=== PATIENT | male | born 1935 | race Hispanic/Latino ===

== ENCOUNTER 2019-01-10 07:28 | Outpatient (CLI) | payer MEDICARE, MEDICAID ==
--- NOTE | 2019-01-10 09:33 | CT ---
CT BRAIN PERFORMED WITHOUT CONTRAST ENHANCEMENT: History: Difficulty speaking. FINDINGS: There is generalized ventricular and sulcal prominence. There are no signs for intracerebral hemorrha ge or extraaxial fluid collections. There is chronic white matter change seen. Mastoid air cells and visualized sinuses are clear. IMPRESSION: No acute intracranial abnormalities. POS: [facility]
--- NOTE | 2019-01-10 10:43 | RAD ---
PA AND LATERAL CHEST: History: Dysphagia. FINDINGS: The heart size is within normal limits. There are atherosclerotic changes within a mildly tortuous ao rta. The lungs are clear of infiltrates. There is some linear scarring in the left lung base. Mild ar thritic changes of the spine. IMPRESSION: 1. Atherosclerosis. 2. No active intrathoracic disease. POS: [facility]
== END 2019-01-10 07:29 | disposition home or self-care (01) ==
LOC: BICCT 07:28
PROVIDERS: ATTEND Family Medicine
DX: I63.9 Cerebral infarction, unspecified (principal); R13.10 Dysphagia, unspecified; I70.90 Unspecified atherosclerosis
CPT/HCPCS: 70450; 71046; 82565

== ENCOUNTER 2019-01-26 09:21 | Outpatient (CLI) | payer MEDICARE, MEDICAID ==
--- NOTE | 2019-01-26 11:42 | RAD ---
BARIUM SWALLOW: HISTORY: Dysphagia. FINDINGS: Swallowing function appears to be within normal limits. There is minimal pooling of contrast into th e vallecula, which clears with swallowing. No evidence for stricture, ulcer, or mass. There is prominent gastroesophageal reflux demonstrated. IMPRESSION: Prominent gastroesophageal reflux demonstrated. No evidence for other significant acute process. POS: [facility]
== END 2019-01-26 09:22 | disposition home or self-care (01) ==
LOC: RAD 09:21
PROVIDERS: ATTEND Internal Medicine Gastroenterology
DX: R13.10 Dysphagia, unspecified (principal); K21.9 Gastro-esophageal reflux disease without esophagitis
CPT/HCPCS: 74220

== ENCOUNTER 2019-02-06 07:46 | Day surgery (SDC) | payer MEDICARE, MEDICAID ==
[2019-02-05 11:04] VITALS: BMI 27.4
--- NOTE | 2019-02-05 23:59 | HP ---
HISTORY OF PRESENT ILLNESS: This is an 83-year-old large Uzbek male comes for EGD for difficulty swallowing. The patient has had difficulty swallowing over the last five years. He does not speak Bulgarian and most of the history is obtained through circular saw edge fuser. Difficulty swallowing is mostly with solid food. the patient had EGD because of dysphagia. ALLERGIES: NONE. SOCIAL HISTORY: The patient does not smoke or drink alcohol. MEDICAL ILLNESSES: 1. Chronic kidney disease. 2. Hypertension. 3. COPD. 4. Kidney stones. 5. Enlarged prostate. 6. Gout. 7. Anemia. 8. Surgery for renal kidney stone in the past. PHYSICAL EXAMINATION: GENERAL: Fragile looking elderly male. VITAL SIGNS: His weight is 195 pounds, pulse is 75, blood pressure 120/76. HEENT: Conjunctivae clear. CARDIOVASCULAR: First and second heart sounds heard. LUNGS: Clear to auscultation. ABDOMEN: Soft. No organomegaly. No tenderness. No masses. EXTREMITIES: Reveal no edema. ADMITTING DIAGNOSIS: Dysphagia. PLAN: EGD and possible dilation. Job ID: [id number]
[2019-02-06] MEDS ORDERED: PROPOFOL 200 MG/20 ML VIAL ONE (11:22)
[2019-02-06] MEDS ORDERED: Lidocaine 1% PF 5 ML VIAL ONE (11:22)
--- NOTE | 2019-02-06 13:55 | OP ---
DATE OF PROCEDURE: 02/06/2019 PROCEDURES PERFORMED: 1. Esophagogastroduodenoscopy with biopsy. 2. Esophageal dilation with a balloon size 15 to 18 mm to stage I for 2 minutes. PREOPERATIVE DIAGNOSIS: Dysphagia. POSTOPERATIVE DIAGNOSES: 1. 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 2. Hiatal hernia. 3. Gastric ulcer. 4. Gastritis. DESCRIPTION OF PROCEDURE: The patient was placed on his left lateral position and was given sedation by Anesthesia Department. A Pentax video gastroscope under direct vision passed down the oropharynx, past the upper esophageal sphincter into the stomach. The upper two-thirds of the esophageal mucosa appears normal. Patient found to have esophagitis. The GE junction has a ring-like stricture. The ring is quite tight. The scope could not be advanced past the ring into his stomach. A Bard balloon size 15 to 18 mm placed at the GE junction over under endoscopic guidance. This was completed to stage I for 2 minutes. Following dilation, there was appropriate at GE junction indicating a successful dilation. No bleeding seen. The scope was advanced into the stomach without difficulty. He has small hiatal hernia. Retroflexion failed to show any pathology in the fundus and cardia. The gastric body, no pathology seen. The gastric antrum showed a small ulceration. The duodenal bulb, descending duodenum, no pathology seen. Biopsy of the gastric antrum and gastric body. The stomach was decompressed and the scope was removed. DISCHARGE PLANNING: This is an 83-year-old Latin-Zambian male came for EGD with dysphagia. EGD was performed. He got a very tight ring-like stricture at the GE junction. This was dilated with balloon size 15 to 18 mm. This was dilated to 15 mm. Following dilation, GE junction. There was mild mucosal oozing noted, but no active bleeding seen. The patient did well postprocedure and is being discharged. DISCHARGE INSTRUCTIONS: 1. The patient was advised on a clear liquid diet for the next 24 hours. 2. Director Private soft diet from tomorrow. 3. The patient was advised to call me, if he develops any chest pain, any fever, hematemesis, or melena. Job ID: [id number]
== END 2019-02-06 11:00 | disposition home or self-care (01) ==
LOC: SDC 07:46
PROVIDERS: ATTEND Internal Medicine Gastroenterology
PROC: 0D758ZZ Dilation of Esophagus, Via Natural or Artificial Opening Endoscopic (ICD-10-PCS; principal; 2019-02-06)
PROC: 0DB78ZX Excision of Stomach, Pylorus, Via Natural or Artificial Opening Endoscopic, Diagnostic (ICD-10-PCS; 2019-02-06)
DX: K22.2 Esophageal obstruction (principal); K29.50 Unspecified chronic gastritis without bleeding; K20.9 Esophagitis, unspecified; K44.9 Diaphragmatic hernia without obstruction or gangrene; K25.9 Gastric ulcer, unspecified as acute or chronic, without hemorrhage or perforation; M10.9 Gout, unspecified; N40.0 Benign prostatic hyperplasia without lower urinary tract symptoms; J44.9 Chronic obstructive pulmonary disease, unspecified; I12.9 Hypertensive chronic kidney disease with stage 1 through stage 4 chronic kidney disease, or unspecified chronic kidney disease; N18.9 Chronic kidney disease, unspecified; D63.1 Anemia in chronic kidney disease; Z79.899 Other long term (current) drug therapy; Z88.2 Allergy status to sulfonamides
CPT/HCPCS: 88305; 88312; 88313; J2001; J2704

== ENCOUNTER 2020-12-03 16:07 | Inpatient (IN) | payer MEDICARE, MEDICAID ==
[2020-12-03 16:39] LABS: #Eosinphils 0.1 thou/uL (0.0-0.7); #Lymphocytes 1.4 thou/uL (1.20-3.40); #Monocytes 0.8 thou/uL (0.11-0.59); #Neutrophils 13.4 thou/uL (1.40-6.50); %Basophils 0.3 % (0.0-1.0); %Eosinophils 0.4 % (0.0-10.0); %Lymphocytes 8.8 % (21.0-51.0); %Monocytes 5.2 % (0.0-10.0); %Neutrophils 85.4 % (42.0-75.0); Hemoglobin 10.8 g/dL (14.0-18.0); Mean Corpuscular HGB CONC 35.1 g/dL (32.0-36.0); Mean Corpuscular Hemoglobin 33.7 pg (27.0-31.0); Mean Corpuscular Volume 96.1 fL (78.0-98.0); Platelet Count 238 thou/uL (130-400); RBC Distribution Width 14.2 % (11.5-14.5); White Blood Cell (WBC) Count 15.6 thou/uL (4.8-10.8)
--- NOTE | 2020-12-03 16:43 | RAD ---
Exam: Chest one view HISTORY:Chest pain. Patient ran out of reflux medication. Vomiting sensation. Comparison: 08/22/2013, 01/10/2019 FINDINGS: Cardiac silhouette: Normal Aorta: At the sclerosis Pulmonary vessels: Normal Costophrenic angles: Clear LUNGS: No masses or consolidation. Pneumothorax: None Osseous abnormalities: None IMPRESSION: No acute cardiopulmonary process. Atherosclerosis.
[2020-12-03 16:59] LABS: ALT (SGPT) 11 U/L (8-55); AST (SGOT) 16 U/L (5-34); Albumin 4.2 g/dL (3.4-4.8); Alkaline Phosphatase 84 U/L (40-110); Anion Gap 14 mmol/L (10-20); BUN (Urea Nitrogen) 33 mg/dL (8.4-25.7); Calc. Creatinine Clearance 0 mL/min (70-130); Calcium 9.2 mg/dL (7.8-10.44); Carbon Dioxide 22 mmol/L (23-31); Chloride 109 mmol/L (98-107); Globulin 3.6 g/dL (2.4-3.5); Glucose 136 mg/dL (83-110); Lipase 29 U/L (8-78); Potassium 3.2 mmol/L (3.5-5.1); Protein, Total 7.8 g/dL (5.8-8.1); Sodium 142 mmol/L (136-145)
[2020-12-03] MEDS ORDERED: Nitroglycerin 2% Ointment 1 INCH/1 GM Packet ONE (17:25)
[2020-12-03] MEDS ORDERED: Labetalol HCl 100 MG/20 ML VIAL ONE (17:26)
[2020-12-03] MEDS ORDERED: Potassium Chloride 20 MEQ TAB ONE (17:26)
[2020-12-03] MEDS ORDERED: Potassium Chloride 20 MEQ/100 ML PREMIX BAG ONE (17:30)
--- NOTE | 2020-12-03 18:08 | RAD ---
BARIUM SWALLOW: 12/03/20 HISTORY: Difficulty drinking and eating. Belching and vomiting sensation. The patient ingested the barium without difficulty. The esophageal mucosa was normal. Questionable sl ight narrowing to the distal esophagus; however, a barium tablet passed through this area without dif ficulty. There were some tertiary contractions demonstrated. N episode of reflux was noted. IMPRESSION: No evidence of any significant stricture. Suggestion of some mild narrowing to the distal esophagus; however, a barium tablet passed without difficulty. No obstructing mass. Overall appearance is simil ar to the previous barium swallow exam of 01/26/19. POS: OFF
[2020-12-03] MEDS ORDERED: Potassium Bicarbonate/Cit Ac 20 MEQ TAB PO SCH (18:30)
--- NOTE | 2020-12-03 18:35 | PDOC.HHP ---
Hospitalist HPI - History of Present Illness chest pain and dysphagia History of Present Illness: PCP: Dr. Guerrero The patient is an 85-year-old male with a past medical history significant for esophageal stricture (previous ballooning), GERD, cirrhosis, alcohol abuse, HTN, CKD 4 and anemia of chronic disease that presents to the emergency department for the above complaint. The patient reports having difficulty swallowing over the past 4 days. He reports that he has not taken most of his medications for the past 2 days. He is able to control his saliva. Denies SOB, cough, and hemoptysis/hematemesis. He endorses chest pain, located centrally, described as "pain", persistent, worse with sensation of belching, and relieved by nothing. He has a history of acid reflux and has not been able to take 1 of 2 medications for the past 2 weeks because he ran out of his prescription. He denies heart palpitations, lightheadedness or swelling to his lower extremities. No history of DVT/PE. No history of COPD/asthma. The patient tested negative for Covid-19 virus today at [facility]. He attempted to see his primary care doctor, who suggested he go to the emergency department for further evaluation of his symptoms. ED Course: VITAL SIGNS TueDec 03, 2020 16:08 HUGO Colmenares Ashleigh Pain: UTR, Time: 12/03/2020 16:08. VITAL SIGNS TueDec 03, 2020 16:11 HUGO Colmenares Ashleigh BP: 166/74, Pulse: 77, Resp: 20, Temp: 98.2 (Oral), Pain: UTR, O2 sat: 99 on (Ro om Air), Time: 12/03/2020 16:11. VITAL SIGNS TueDec 03, 2020 16:27 HUGO Church, Marquis BP: 196/78, Pulse: 90, Resp: 17, Pain: 7, O2 sat: 100 on (Room Air), Time: 12/03/2020 16:27. VITAL SIGNS TueDec 03, 2020 17:35 HUGO Douglass Miranda BP: 170/62, Pulse: 66, Resp: 17, O2 sat: 100 on (Room Air), Time: 12/03/2020 17:35. Medications: potassium bicarb-citric acid 40 mEq Oral Acknowledged 18:19 12/03/2020 labetalol intravenous 20 mg IV Push Given 18:08 12/03/2020 Nitro-Bid transdermal 1 inch Topical Given 17:30 12/03/2020 Hospitalist ROS - Review of Systems All other systems reviewed; all pertinent +/- noted in HPI/Subj - Medication Medications: 1. Folic acid 1 mg p.o. daily 2. B12 1000 mcg p.o. daily 3. Allopurinol 100 mg p.o. daily 4. Dutasteride 0.5 mg p.o. daily 5. Tamsulosin 0.4 mg p.o. daily 6. Amlodipine 5 mg p.o. daily 7. Carvedilol 6.25 mg p.o. twice daily 8. Hydralazine 10 mg p.o. twice daily 9. Spironolactone 25 mg p.o. twice daily 10. Allopurinol 100 mg p.o. daily Allergies: Sulfa Hospitalist History - Past Medical History Source: patient, family, RN notes reviewed Cardiac: reports: HTN Gastrointestinal: reports: GERD, Other (Esophageal stricture) Heme/Onc: reports: B12 deficiency Hepatobiliary: reports: Cirrhosis Rheumatologic: reports: Gout Renal/: reports: Chronic renal insuff (CKD4), Benign prostatic enlarg. Endocrine: reports: Diabetes (Borderline) - Past Surgical History Past Surgical History: reports: Other (Esophageal stricture with balloon) - Family History Family History: denies: cardiac disorder, cerebrovascular accident - Social History Smoking Status: Never smoker Alcohol: reports: Heavy (Former heavy unhealthy alcohol use, 30 pack every other day, quit 5 to 6 years ago) Drugs: reports: none Living Situation: Alone Occupation: Retired Activity level: uses cane/walker - Exam General Appearance: NAD, awake alert. negative: ill appearing Eye: anicteric sclera ENT: normocephalic atraumatic Neck: supple, no lymphadenopathy, no carotid bruit Heart: RRR, no murmur, no gallops, no rubs, normal peripheral pulses Respiratory: CTAB, no wheezes, no rales, no ronchi, normal chest expansion, no tachypnea Gastrointestinal: soft, non-tender, normal bowel sounds, no guarding, no rigidity, distended Extremities: no cyanosis, no edema Skin: no rashes Neurological: cranial nerve grossly intact, no focal deficits Psychiatric: normal affect, A&O x 3 (Khmer speaking) Hospitalist Results - Labs Result Diagrams: 12/03/20 16:24 12/03/20 16:24 Lab results: WBC 15.6 thou/uL (4.8-10.8) H 12/03/20 16:24 Hgb 10.8 g/dL (14.0-18.0) L 12/03/20 16:24 Hct 30.7 % (42.0-52.0) L 12/03/20 16:24 MCV 96.1 fL (78.0-98.0) 12/03/20 16:24 Plt Count 238 thou/uL (130-400) 12/03/20 16:24 Neutrophils % 85.4 % (42.0-75.0) H 12/03/20 16:24 Sodium 142 mmol/L (136-145) 12/03/20 16:24 Potassium 3.2 mmol/L (3.5-5.1) L 12/03/20 16:24 Chloride 109 mmol/L (98-107) H 12/03/20 16:24 Carbon Dioxide 22 mmol/L (23-31) L 12/03/20 16:24 BUN 33 mg/dL (8.4-25.7) H 12/03/20 16:24 Creatinine 3.67 mg/dL (0.7-1.3) H 12/03/20 16:24 Glucose 136 mg/dL (83-110) H 12/03/20 16:24 Calcium 9.2 mg/dL (7.8-10.44) 12/03/20 16:24 Total Bilirubin 2.0 mg/dL (0.2-1.2) H 12/03/20 16:24 AST 16 U/L (5-34) 12/03/20 16:24 ALT 11 U/L (8-55) 12/03/20 16:24 Alkaline Phosphatase 84 U/L (40-110) 12/03/20 16:24 Troponin I 0.025 ng/mL (< 0.028) 12/03/20 16:24 Serum Total Protein 7.8 g/dL (5.8-8.1) 12/03/20 16:24 Albumin 4.2 g/dL (3.4-4.8) 01/20/21 16:24 Lipase 29 U/L (8-78) 12/03/20 16:24 - EKG Interpretation EK lead EKG interpreted by Emergency Department Physician at time of study, Sinus rhythm with a first-degree AV block. Rate of 73. Normal axis normal inter vals except a first-degree AV block. Normal ST segments normal T waves. There is a tremor artifact. - Radiology Interpretation Chest x-ray Status: report reviewed by me Additional Comment: IMPRESSION: No acute cardiopulmonary process. Atherosclerosis. Other Status: report reviewed by me Additional Comment: Barium swallow: No evidence of any significant stricture. Suggestion of some mild narrowing to the distal esophagus; however, a barium tablet passed without difficulty. No obstructing mass. Overall appearance is similar to the previous barium swal low exam of 01-26-19. Hospitalist H&P A/P - Problem (1) Chest pain Code(s): R07.9 - CHEST PAIN, UNSPECIFIED Status: Acute (2) Hypertensive urgency Code(s): I16.0 - HYPERTENSIVE URGENCY Status: Acute (3) Dysphagia Code(s): R13.10 - DYSPHAGIA, UNSPECIFIED Status: Acute (4) Leukocytosis Code(s): D72.829 - ELEVATED WHITE BLOOD CELL COUNT, UNSPECIFIED Status: Acute (5) Hypokalemia Code(s): E87.6 - HYPOKALEMIA Status: Acute (6) Elevated glucose level Code(s): R73.09 - OTHER ABNORMAL GLUCOSE Status: Acute (7) Kidney disease, chronic, stage IV (GFR 15-29 ml/min) Code(s): N18.4 - CHRONIC KIDNEY DISEASE, STAGE 4 (SEVERE) Status: Chronic (8) Anemia, chronic disease Code(s): D63.8 - ANEMIA IN OTHER CHRONIC DISEASES CLASSIFIED ELSEWHERE Status: Chronic (9) GERD (gastroesophageal reflux disease) Code(s): K21.9 - GASTRO-ESOPHAGEAL REFLUX DISEASE WITHOUT ESOPHAGITIS Status: Chronic (10) Gout Code(s): M10.9 - GOUT, UNSPECIFIED Status: Chronic (11) Cirrhosis of liver Code(s): K74.60 - UNSPECIFIED CIRRHOSIS OF LIVER Status: Chronic - Plan Plan: A patient with history of esophageal stricture, GERD and HTN presents for chest pain and dysphagia. Admit to telemetry floor, inpatient status. #Chest pain ACS versus GERD Symptoms present with belching, has not taken 1 of 2 GERD medications for 14 days. Heart score 5 Give GI cocktail x1. Trend troponins, check TSH, FLP, mag and BNP. Give aspirin and statin and beta-kyung. Continue Nitropaste. Consult cardiology N.p.o. #Hypertensive urgency BP 196/78 Has not taken Norvasc, Coreg, hydralazine for 2 days. Given labetalol in ER. We will restart home medications. Continue to monitor BP. #Dysphagia History esophageal stricture status post ballooning. Barium swallow no evidence of significant stricture. Patient hesitant with oral intake. Consult TELE RN. #Leukocytosis Presented WBCs 15.6, no bandemia Denies fever/chills. No sick contacts. Rapid Covid (neg) 12/03 at [facility] prior to admission here. CXR no acute process Check UA No antibiotics at this time. #Hypokalemia Presented K3.2 Received 40 mEq in the ER. Check mag level. Recheck level in a.m. #Elevated blood glucose level Presented BG 136 Prediabetic?- per patient family member Check hemoglobin A1c. #Chronic kidney disease stage IV Presented BUN 33, creatinine 3.67, GFR 16 No baseline for comparison. We will recheck level in the a.m. #Anemia of chronic disease Presented hemoglobin 10.8, hematocrit 30.7 Appears stable. #GERD Takes 2 unknown medications for GERD at home. Has not taken one of them for 14 days because he ran out. Start Protonix. #Gout Takes allopurinol at home. Restart home medications and reconciled by nursing. #Cirrhosis of the liver Chronic, appears stable. T bili 2.0, AST/ALT/ALP unremarkable. History of unhealthy alcohol use disorder Drink 30 pack every other day. Quit 5 to 6 years ago. SCDs for DVT prophylaxis. Protonix for GI prophylaxis. CODE STATUS is full code. Discussed the case with attending physician, Dr. Coker who agrees with plan of care.
[2020-12-03] MEDS ORDERED: Nitroglycerin 0.4 MG TAB (25 Tab Bottle) SL PRN (19:14)
[2020-12-03] MEDS ORDERED: Calcium Carbonate 500 MG ChewTAB PO PRN (19:23)
[2020-12-03] MEDS ORDERED: Ondansetron ODT 4 MG TAB PO PRN (19:23)
[2020-12-03] MEDS ORDERED: Acetaminophen 325 MG TAB PO PRN (19:23)
[2020-12-03] MEDS ORDERED: Senokot S 8.6-50 MG TAB PO PRN (19:23)
[2020-12-03] MEDS ORDERED: Bisacodyl 5 MG TAB PO PRN (19:23)
[2020-12-03] MEDS ORDERED: Lidocaine 2% Viscous Solution 10 ML, Aluminum & Magnesium Hydroxide 30 ML SSW SCH (19:30)
[2020-12-03] MEDS ORDERED: Aspirin 325 MG TAB PO SCH (19:30)
[2020-12-03 19:43] LABS: Troponin I 0.018 ng/mL (< 0.028)
--- NOTE | 2020-12-03 21:43 | ULT ---
RENAL ULTRASOUND: 12/03/20 HISTORY: Acute renal insufficiency. Real time imaging of the right and left kidneys were performed. The right kidney measures 10.7 cm in size and the left kidney measures 11.8 cm. Multiple cysts are seen on the right. The largest in the 3 cm range. Cortical thinning of both kidneys. The changes are more pronounced on the right. There aldair ears to be a posterior bladder diverticulum present. The prostate is prominent. IMPRESSION: 1. No obstruction of either kidney. Several right sided renal cysts, largest in the upper pole r egion measuring in the 3 cm range. Cortical thinning of both kidneys. 2. 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 POS: OFF
[2020-12-03] MEDS: Atorvastatin Calcium 40 MG TAB PO SCH (22:07)
[2020-12-03] MEDS: Nitroglycerin 2% Ointment 1 INCH/1 GM Packet TOP SCH (22:08)
[2020-12-03 22:22] VITALS: BMI 25.0
[2020-12-03 23:15] LABS: Troponin I 0.021 ng/mL (< 0.028)
[2020-12-04 04:07] LABS: #Basophils 0.1 thou/uL (0.0-0.2); #Eosinphils 0.2 thou/uL (0.0-0.7); #Lymphocytes 1.8 thou/uL (1.20-3.40); #Monocytes 1.1 thou/uL (0.11-0.59); #Neutrophils 8.1 thou/uL (1.40-6.50); %Basophils 0.5 % (0.0-1.0); %Eosinophils 1.7 % (0.0-10.0); %Lymphocytes 16.2 % (21.0-51.0); %Monocytes 9.9 % (0.0-10.0); %Neutrophils 71.7 % (42.0-75.0); Hemoglobin 8.8 g/dL (14.0-18.0); Mean Corpuscular HGB CONC 35.8 g/dL (32.0-36.0); Mean Corpuscular Hemoglobin 33.9 pg (27.0-31.0); Mean Corpuscular Volume 94.8 fL (78.0-98.0); Mean Platelet Volume 8.1 fL (7.4-10.4); Platelet Count 207 thou/uL (130-400); RBC Distribution Width 14.4 % (11.5-14.5); White Blood Cell (WBC) Count 11.3 thou/uL (4.8-10.8)
[2020-12-04 04:14] LABS: Hemoglobin A1c 4.6 % (4.0-6.0)
[2020-12-04 04:32] LABS: Cardiac Risk 4.4 (Less than 4.5)
[2020-12-04] MEDS: Nitroglycerin 2% Ointment 1 INCH/1 GM Packet TOP SCH ×3 (05:38→20:49)
[2020-12-04] MEDS ORDERED: Carvedilol 6.25 MG TAB PO SCH (08:00)
[2020-12-04] MEDS: Aspirin Chewable 81 MG TAB PO SCH (09:04)
[2020-12-04 10:45] LABS: Bacteria/HPF None Seen HPF (None Seen); Bilirubin Negative (Negative); Blood, Urine Negative (Negative); Clarity Clear (Clear); Glucose, Urine (Dipstick) Normal (Negative); Ketone, Urine Negative (Negative); Leukocyte Negative Leu/uL (Negative); Nitrite Negative (Negative); Protein, Urine (Dipstick) 30 mg/dL (Neg-Trace); RBC/HPF 0-3 HPF (0-3); Specific Gravity, Urine 1.012 (1.002-1.036); Squamous Epithelial 0-3 HPF (0-3); Urobilinogen Normal mg/dL (Less than 2); WBC/HPF 0-3 HPF (0-3)
--- NOTE | 2020-12-04 16:43 | CON ---
DATE OF CONSULTATION: 12/04/2020 REASON FOR CONSULTATION: Chest pain. HISTORY OF PRESENT ILLNESS: Mr. Liana Montaño is a very pleasant 85-year-old gentleman, Estonian-speaking only, who comes to the hospital for dysphagia and chest pain. He states that he has pain when he swallows, otherwise if he does not swallow much, he does not have pain. He has a history of an esophageal stricture. He last had a dilatation from reviewing the records in [address] Paige here in the hospital. He denies any chest tightness or pressure or any symptoms with exertion, he states it is only with swallowing. Cardiology is being consulted as there is a concern this chest pain may be cardiac related. PAST MEDICAL HISTORY: 1. Esophageal stricture with previous dilatation. 2. GERD. 3. Cirrhosis. 4. Alcohol abuse. 5. Hypertension. 6. Chronic kidney disease stage 4. 7. Anemia of chronic disease. OUTPATIENT MEDICATIONS: 1. Folic acid 1 mg a day. 2. Vitamin B12. 3. Allopurinol. 4. Dutasteride. 5. Tamsulosin. 6. Amlodipine 5 mg a day. 7. Carvedilol 6.25 b.i.d. 8. Hydralazine 10 mg b.i.d. 9. Spironolactone 25 mg twice a day. ALLERGIES: SULFA DRUGS. PAST SURGICAL HISTORY: EGD with esophageal dilatation. FAMILY HISTORY: Noncontributory. SOCIAL HISTORY: No tobacco or drugs. Heavy alcohol use, quit about 5 to 6 years ago. REVIEW OF SYSTEMS: A 12-point review of systems was done and was found to be negative other than stated in the history of present illness. PHYSICAL EXAMINATION: VITAL SIGNS: Temperature 97.9, pulse 60, respiratory rate 18, saturating 97% on room air, and blood pressure 167/74. GENERAL: Awake, alert, oriented x3. In no distress. Very difficult historian. Easier for me as he speaks Estonian. HEENT: Normocephalic, atraumatic. NECK: Supple. LUNGS: Clear. CARDIOVASCULAR: S1 and S2. No S3 or S4. There is a grade 2/6 systolic murmur at the right upper sternal border. ABDOMEN: Soft. Positive bowel sounds. EXTREMITIES: No edema. SKIN: Warm and dry. LABORATORY DATA: Laboratory work was reviewed. CBC with a white count of 15, hemoglobin of 10, hematocrit of 30, and platelet count of 238, that is from yesterday afternoon. This morning, white count is down to 11, hemoglobin is down to 8.8 from 10.8 with a platelet count of 207. Chemistries showed a potassium of 3.2, BUN of 33, creatinine of 3.67. This is way higher than his baseline which is about 1.5 to 2.5. Troponin is completely negative x2. BNP was 183. Lipase was normal. TSH was normal. UA was unremarkable. EKG was reviewed. ASSESSMENT AND PLAN: 1. Chest pain. Likely gastrointestinal in nature. 2. Esophageal stricture. 3. Dysphagia. 4. Cirrhosis. 5. Acute kidney injury on chronic kidney disease stage 4 now. 6. Hypertension. PLAN: 1. We will get an echocardiogram to assess LV function and valvular structures. 2. I doubt that his pain is related to a cardiac issue as it is mostly when he swallows, most likely will need a GI evaluation. 3. We will restart his home medications. He has not been taking any of his medications as he has had the hard time swallowing. More than likely, he will get better blood pressure control once he is able to take his home medications. 4. Further recommendations per results of echocardiogram. Thank you for letting us to participate in the care of the patient. Job ID: [id number]
[2020-12-04] MEDS: Atorvastatin Calcium 40 MG TAB PO SCH (20:48)
[2020-12-04] MEDS ORDERED: Electrolyte Replacement Protocol 1 EACH FS SCH (23:00)
[2020-12-04] MEDS ORDERED: hydrALAZINE 20 MG/ML VIAL SLOW IVP PRN (23:00)
--- NOTE | 2020-12-04 23:02 | PDOC.HOSPP ---
- Subjective Encounter Date: 12/04/20 Encounter Time: 12:30 Subjective: Patient seen and examined for CP. Chest pain resolved. Denies any nausea or vomiting. No new complaints. No overnight events - Objective Vital Signs & Weight: Vital Signs (12 hours) Temp Pulse Resp BP Pulse Ox 12/04/20 18:55 97.6 F 60 16 174/77 H 98 12/04/20 15:16 97.9 F 60 18 167/74 H 97 12/04/20 12:46 98.8 F 60 14 155/71 H 97 Weight Weight 169 lb 6.4 oz I&O: 12/03/20 12/04/20 12/05/20 06:59 06:59 06:59 Intake Total 240 360 Output Total 300 Balance 240 60 Result Diagrams: 12/05/20 04:11 12/05/20 04:11 Additional Labs: Abnormal Lab Results - Last 48 hrs 12/03/20 16:24: Potassium 3.2 L, Chloride 109 H, Carbon Dioxide 22 L, BUN 33 H, Creatinine 3.67 H, Total Bilirubin 2.0 H, Globulin 3.6 H 12/03/20 16:24: WBC 15.6 H, RBC 3.20 L, Hgb 10.8 L, Hct 30.7 L, MCH 33.7 H, Neutrophils % 85.4 H, Lymphocytes % 8.8 L, Neutrophils # 13.4 H, Monocytes # 0.8 H 12/03/20 19:52: B-Natriuretic Peptide 183.4 H 12/04/20 03:22: WBC 11.3 H, RBC 2.60 L, Hgb 8.8 L, Hct 24.6 L, MCH 33.9 H, Lymph ocytes % 16.2 L, Neutrophils # 8.1 H, Monocytes # 1.1 H 12/04/20 10:09: Urine Protein 30 A Radiology Reviewed by me: Yes (Chest x-rayno infiltrate) EKG Reviewed by me: Yes (Tele - SR/?AV block) Hospitalist ROS - Review of Systems Gastrointestinal: denies: nausea, vomiting, abdominal pain, diarrhea, constipation, melena, hematochezia, other Genitourinary: denies: dysuria, frequency, incontinence, hematuria, retention, other - Medication Medications: Active Medications Generic Name Dose Route Start Last Admin Trade Name Freq PRN Reason Stop Dose Admin Aspirin 81 mg 12/04/20 09:00 12/04/20 09:04 Aspirin Chewable 81 Mg Tab PO 81 mg DAILY JOSEPH Administration Atorvastatin Calcium 40 mg 12/03/20 21:00 12/04/20 20:48 Atorvastatin Calcium 40 Mg Tab PO 40 mg HS JOSEPH Administration Nitroglycerin 0.5 inch 12/03/20 22:00 12/04/20 20:49 Nitroglycerin 2% Ointment 1 Inch/1 Gm Packet TOP Not Given Q8HR JOSEPH Pantoprazole Sodium 40 mg 12/04/20 09:00 12/04/20 09:04 Pantoprazole 40 Mg Tab PO 40 mg DAILY JOSEPH Administration - Exam General Appearance: NAD, awake alert Heart: RRR, no gallops, no rubs, normal peripheral pulses Respiratory: no wheezes, no rales, no ronchi, normal chest expansion Gastrointestinal: soft, non-tender, non-distended, normal bowel sounds Extremities: no cyanosis, no clubbing, no edema Neurological: no new deficit Musculoskeletal: generalized weakness Psychiatric: normal affect, A&O x 3 Hosp A/P - Plan DVT proph w/SCDs Patient is 85-year-old male with GERD, hypertension, CKD and esophageal stricture presented to the emergency room with chest discomfort along with swallowing difficulty on 12/03. Impression: Chest pain/dysphagia suspected due to esophageal in origin History of esophageal stricture Acute kidney injury on CKD stage IIIprobably hemodynamically mediated Hypokalemia Chronic cirrhosis with abnormal LFTs Anemia of chronic disease ? Speech difficulty x 1 month Plan: We will continue nitroglycerin patch. GI and cardiology input appreciated. Replace potassium. Recheck labs in a.m. Continue other medications as above. Patient will probably need EGD and dilatation. As needed antihypertensives. Recheck labs in a.m.
[2020-12-05 04:57] LABS: #Basophils 0.1 thou/uL (0.0-0.2); #Eosinphils 0.2 thou/uL (0.0-0.7); #Lymphocytes 1.7 thou/uL (1.20-3.40); #Monocytes 0.9 thou/uL (0.11-0.59); #Neutrophils 9.5 thou/uL (1.40-6.50); %Basophils 0.6 % (0.0-1.0); %Eosinophils 1.5 % (0.0-10.0); %Lymphocytes 13.8 % (21.0-51.0); %Monocytes 7.6 % (0.0-10.0); %Neutrophils 76.6 % (42.0-75.0); Hemoglobin 9.4 g/dL (14.0-18.0); Mean Corpuscular HGB CONC 34.2 g/dL (32.0-36.0); Mean Corpuscular Hemoglobin 32.7 pg (27.0-31.0); Mean Corpuscular Volume 95.5 fL (78.0-98.0); Mean Platelet Volume 8.4 fL (7.4-10.4); Platelet Count 214 thou/uL (130-400); RBC Distribution Width 14.3 % (11.5-14.5); Red Blood Cell (RBC) Count 2.89 mill/uL (4.70-6.10); White Blood Cell (WBC) Count 12.4 thou/uL (4.8-10.8)
[2020-12-05 05:18] LABS: Phosphorus 2.4 mg/dL (2.3-4.7)
[2020-12-05 05:24] LABS: ALT (SGPT) 7 U/L (8-55); AST (SGOT) 13 U/L (5-34); Albumin 3.3 g/dL (3.4-4.8); Alkaline Phosphatase 70 U/L (40-110); Anion Gap 15 mmol/L (10-20); BUN (Urea Nitrogen) 33 mg/dL (8.4-25.7); Bilirubin, Total 2.1 mg/dL (0.2-1.2); Calc. Creatinine Clearance 19 mL/min (70-130); Calcium 8.2 mg/dL (7.8-10.44); Carbon Dioxide 18 mmol/L (23-31); Chloride 106 mmol/L (98-107); Globulin 2.8 g/dL (2.4-3.5); Glucose 81 mg/dL (83-110); Magnesium 2.2 mg/dL (1.6-2.6); Potassium 3.3 mmol/L (3.5-5.1); Protein, Total 6.1 g/dL (5.8-8.1); Sodium 136 mmol/L (136-145)
[2020-12-05] MEDS: Nitroglycerin 2% Ointment 1 INCH/1 GM Packet TOP SCH ×3 (05:39→20:52)
[2020-12-05] MEDS ORDERED: Potassium Chloride 20 MEQ TAB PO SCH (06:30)
--- NOTE | 2020-12-05 06:47 | CON ---
DATE OF CONSULTATION: REASON FOR CONSULTATION: Dysphagia, painful swallowing. HISTORY OF PRESENT ILLNESS: Mr. Edward Montaño is an 85-year-old Latin-Niue[place] male, hospitalized for difficulty swallowing and chest pain. He has been seen by Dr. López Ni for cardiology input. Dr. Ni does not think the pain is from the heart and the pain appears to be more pain with swallowing. He also has history of dysphagia. The patient was in the room along with an diplomatic interpreter. The patient does not speak [place]ese. Also, the patient has been having some difficulty swallowing off and on over the last several weeks and got suddenly worse. Apparently on the day of admission, he had some frothing at the mouth and spitting saliva. Since then, his symptoms markedly improved. The patient has history of chronic acid reflux and also he has past history of gastric ulcer. The patient had seen me in January of 2019 with dysphagia. He underwent an EGD in this hospital. He was found to have a very tight esophageal stricture, which was dilated with a balloon. He also had a gastric ulcer. The patient was placed on PPI. He came back to see me in the office subsequently and was doing well. He has done well since dilatation until a few years ago. He has recurrent dysphagia again. However, he also has some difficulty with mostly to solid food. Food hangs up there and makes him cough and choke. He has no difficulty drinking water. He also complains of painful swallowing recently. Denies any chest tightness, dyspnea, or chest heaviness. The patient apparently takes some PPI, which ran out a few days ago. The patient had a barium swallow done yesterday, which revealed a distal esophageal stricture. A 12 mm barium tablet did pass down, but distal esophageal stricture barium swallow. No esophageal mass seen. No relevant history. The patient denies abdominal pain. No hematochezia. No melena. ALLERGIES: SULFA. SOCIAL HISTORY: He lives with his niece and nephew. He is a past smoker and has a past history of chronic alcohol abuse until five years ago. No recent drug abuse. MEDICAL ILLNESSES: 1. 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 2. Chronic acid reflux. 3. Hypertension. 4. Chronic kidney disease stage 4. 5. Anemia of chronic disease. 6. Esophageal stricture, status post dilation in 2019. 7. Gastric ulcer. MEDICATIONS: 1. Folic acid. 2. Vitamin B12. 3. Allopurinol. 4. Tamsulosin. 5. Amlodipine. 6. Carvedilol. 7. Hydralazine. 8. Spironolactone. FAMILY HISTORY: Unremarkable. REVIEW OF SYSTEMS: A 10-point system review; basically painful swallowing, dysphagia. No abdominal pain. No hematochezia. No melena. No weight loss. PHYSICAL EXAMINATION: GENERAL: He appears very comfortable. He is awake, alert, and communicative. He is in no distress. VITAL SIGNS: Afebrile. Pulse is 60, blood pressure is 160/74. HEENT: Conjunctivae clear. NECK: Supple. No adenitis or thyromegaly noted. CARDIOVASCULAR SYSTEM: Normal heart sounds. He has a faint systolic murmur. LUNGS: Clear to auscultation. ABDOMEN: Soft. Nontender. No organomegaly. No masses. Bowel sounds normal. EXTREMITIES: Reveal no edema. LABORATORY DATA: Shows WBC 15,000, hemoglobin 10, hematocrit 30, platelet count 238,000. Potassium 3.2, BUN is 33, creatinine is 3.67. Troponin is normal. BNP 183. Lipase is normal. CLINICAL IMPRESSION: An 85-year-old Latin-Niuean male, who is known to me from before. He has seen me in 2019 and underwent EGD and dilation. The EGD showed a very tight distal esophageal stricture and he underwent balloon dilation. He had done well after dilation. Because of the recurrent dysphagia following. 1. cardiac disease. 2. Hypertension. 3. Liver cirrhosis. 4. Chronic acid reflux. 5. Chronic kidney disease. 6. Anemia of chronic disease. PLAN: EGD and dilation tomorrow. I did talk to the patient through the diplomatic interpreter, and explained the procedure in detail. I will make further recommendation after EGD. Job ID: [id number]
--- NOTE | 2020-12-05 08:15 | CT ---
Head CT without contrast 12/05/2020: COMPARISON: 01/10/2019 HISTORY: Speech disturbance, assess for stroke TECHNIQUE: Axial CT imaging at 5 mm intervals from vertex through skull base without contrast FINDINGS: The imaged paranasal sinuses and mastoid air cells appear well-aerated. There is no displac ed calvarial fracture noted. There is atherosclerotic calcification at the level of the cavernous carotid arteries. No intracranial hemorrhage, midline shift, or mass effect. Stable cerebral volume loss with associate d prominence of the CSF containing spaces. IMPRESSION: Cerebral volume loss, unchanged. No intracranial hemorrhage. There is clinical concern fo r acute infarction, brain MRI is advised if the patient is able.
[2020-12-05] MEDS: Aspirin Chewable 81 MG TAB PO SCH (08:48)
[2020-12-05] MEDS ORDERED: PROPOFOL 200 MG/20 ML VIAL ONE (09:52)
[2020-12-05] MEDS ORDERED: Sodium Chloride 0.9% 500 ML IV SCH (10:30)
--- NOTE | 2020-12-05 12:28 | EKG ---
Test Reason : STAT Blood Pressure : / mmHG Vent. Rate : 060 BPM Atrial Rate : 060 BPM P-R Int : 300 ms QRS Dur : 068 ms QT Int : 442 ms P-R-T Axes : 005 037 035 degrees QTc Int : 442 ms Sinus rhythm with 1st degree A-V block Otherwise normal ECG Confirmed by ERROL LAWSON ([id number]) on 12/05/2020 12:28:03 PM Referred By: JOAN LUQUE Confirmed By:ERROL LAWSON
--- NOTE | 2020-12-05 13:27 | OP ---
DATE OF PROCEDURE: 12/05/2020 OPERATIVE PROCEDURE: 1. Esophagogastroduodenoscopy with biopsy. 2. Esophageal dilation with a balloon size 15 to 18 mm to stage I, corresponding to 15 mm. 3. The patient has a 16 mm balloon dilation with no resistance. PREOPERATIVE DIAGNOSES: Dysphagia, chest pain. POSTOPERATIVE DIAGNOSES: 1. Esophageal ulcer at the junction of mid esophagus to lower esophagus. 2. Distal esophageal ring-like stricture. 3. Hiatus hernia. 4. Polyp of the gastric body and another one in the gastric antrum. 5. Diffuse gastritis. DESCRIPTION OF PROCEDURE: The patient was placed on his left lateral position and was given sedation by Anesthesia Department. A bite block was placed. A Pentax video gastroscope under direct vision passed down the oropharynx past the GE junction. The patient had esophageal ulceration at the junction of mid esophagus . The ulcer was circumferential. At the GE junction, he had a ring-like esophageal stricture. The scope was advanced into the stomach with resistance. There was mild mucosal tear and mild bleeding noted. He had a hiatus hernia. Retroflexion failed to show any pathology in fundus or cardia. Over the gastric body, the patient was found to have an ulcerated polyp measuring approximately 1 cm. This was biopsied. He also had diffuse gastritis and another polyp in the gastric antrum. The duodenal bulb, descending duodenum, no lesion seen. A Bard balloon size 15 to 18 mm placed at the GE junction distal esophagus. The balloon was inflated to stage I for 2 minutes and deflated. Following dilation, there was mucosal friability and mild bleeding noted. The balloon and scope removed. In the rectum, passed a 16 mm Robertson dilator subsequently. This was passed with no resistance. Post dilation, the patient was re-scoped with no complication noted except for a mucosal tear at the GE junction for dilation. The stomach decompressed and the scope removed. RECOMMENDATIONS: 1. Mechanical soft diet today. 2. Continue Protonix. 3. From GI standpoint, he can be discharged home hopefully tomorrow and we will bring him back for repeat dilation in 2 weeks. Job ID: [id number]
[2020-12-05] MEDS: NS 0.9% w/ 20 MEQ KCL 1,000 ML/1,000 ML BAG IV SCH ×2 (14:23→20:51)
--- NOTE | 2020-12-05 18:56 | PDOC.HOSPP ---
- Subjective Encounter Date: 12/05/20 Encounter Time: 13:00 Subjective: Patient seen and examined for chest pain. Underwent EGD today. Had some nausea with heartburn earlier today. No diaphoresis, syncope or palpitations reported - Objective Vital Signs & Weight: Vital Signs (12 hours) Temp Pulse Pulse Pulse Resp BP BP 12/05/20 15:14 97.9 F 64 17 12/05/20 13:20 97.8 F 63 13 12/05/20 08:57 77 173/74 H 12/05/20 08:45 68 73 181/73 H 173/74 H 12/05/20 07:16 12/05/20 07:05 98.3 F 62 17 BP Pulse Ox 12/05/20 15:14 164/73 H 96 12/05/20 13:20 186/81 H 98 12/05/20 08:57 12/05/20 08:45 12/05/20 07:16 96 12/05/20 07:05 148/67 H 97 Weight Weight 169 lb 6.4 oz I&O: 12/04/20 12/05/20 12/06/20 06:59 06:59 06:59 Intake Total 240 600 Output Total 850 200 Balance 240 -250 -200 Result Diagrams: 12/05/20 04:11 12/05/20 04:11 Additional Labs: Abnormal Lab Results - Last 48 hrs 12/03/20 19:52: B-Natriuretic Peptide 183.4 H 12/04/20 03:22: WBC 11.3 H, RBC 2.60 L, Hgb 8.8 L, Hct 24.6 L, MCH 33.9 H, Lymphocytes % 16.2 L, Neutrophils # 8.1 H, Monocytes # 1.1 H 12/04/20 10:09: Urine Protein 30 A 12/05/20 04:11: Potassium 3.3 L, Carbon Dioxide 18 L, BUN 33 H, Creatinine 3.11 H, Total Bilirubin 2.1 H, ALT 7 L, Albumin 3.3 L 12/05/20 04:11: WBC 12.4 H, RBC 2.89 L, Hgb 9.4 L, Hct 27.6 L, MCH 32.7 H, Neutrophils % 76.6 H, Lymphocytes % 13.8 L, Neutrophils # 9.5 H, Monocytes # 0.9 H 12/05/20 04:11: Vitamin B12 1229 H Radiology Reviewed by me: Yes (CT brainno new CVA) EKG Reviewed by me: Yes (Sinus rhythm on telemetry) Hospitalist ROS - Review of Systems Cardiovascular: denies: chest pain, palpitations, orthopnea, paroxysmal noc. dyspnea, edema, light headedness, other Gastrointestinal: denies: nausea, vomiting, abdominal pain, diarrhea, constipation, melena, hematochezia, other - Medication Medications: Active Medications Generic Name Dose Route Start Last Admin Trade Name Freq PRN Reason Stop Dose Admin Aspirin 81 mg 12/04/20 09:00 12/05/20 08:48 Aspirin Chewable 81 Mg Tab PO Not Given DAILY JOSEPH Atorvastatin Calcium 40 mg 12/03/20 21:00 12/04/20 20:48 Atorvastatin Calcium 40 Mg Tab PO 40 mg HS JOSEPH Administration Hydralazine HCl 10 mg 12/04/20 23:00 12/05/20 03:49 Hydralazine 20 Mg/Ml Vial SLOW IVP 10 mg Q4H PRN Administration SBP GREATER THAN 160 Potassium Chloride/Sodium Chloride 1,000 ml in 1,000 mls @ 125 mls/hr 12/05/20 10:30 12/05/20 14:23 Ns 0.9% W/ 20 Meq Kcl IV 1,000 mls .Q8H JOSEPH Administration Nitroglycerin 0.5 inch 12/03/20 22:00 12/05/20 14:24 Nitroglycerin 2% Ointment 1 Inch/1 Gm Packet TOP Not Given Q8HR JOSEPH Pantoprazole Sodium 40 mg 12/04/20 09:00 12/05/20 08:48 Pantoprazole 40 Mg Tab PO Not Given DAILY JOSEPH - Exam General Appearance: NAD Neck: supple, no JVD Heart: RRR, no gallops Respiratory: no wheezes, no ronchi Gastrointestinal: soft, non-distended, no guarding, no rigidity Extremities: no cyanosis Musculoskeletal: generalized weakness Psychiatric: A&O x 3 Hosp A/P - Plan DVT proph w/SCDs Patient is 85-year-old male with GERD, hypertension, CKD and esophageal stricture presented to the emergency room with chest discomfort along with swallowing difficulty on 12/03. Impression: Chest pain/dysphagia suspected due to esophageal in origin History of esophageal stricture Acute kidney injury on CKD stage IIIprobably hemodynamically mediated Hypokalemia Chronic cirrhosis with abnormal LFTs Anemia of chronic disease ? Speech difficulty x 1 month Plan: Patient was found to have esophageal ulcer at the junction of mid esophagus to lower esophagus with esophageal stricture requiring dilatation. Chest pain is improving. Patient's creatinine today is 3.1 from 3.67. Echocardiogram pending at this time we will replace potassium. Continue gentle hydration. Will add calcium channel kyung due to uncontrolled blood pressure. Continue other medications as above. Recheck labs in a.m. 12/04 We will continue nitroglycerin patch. GI and cardiology input appreciated. Replace potassium. Recheck labs in a.m. Continue other medications as above. Patient will probably need EGD and dilatation. As needed antihypertensives. Recheck labs in a.m.
[2020-12-05] MEDS: NIFEdipine XL 30 MG TAB PO SCH (20:51)
[2020-12-05] MEDS: Atorvastatin Calcium 40 MG TAB PO SCH (20:52)
[2020-12-06 04:40] LABS: #Eosinphils 0.3 thou/uL (0.0-0.7); #Lymphocytes 1.4 thou/uL (1.20-3.40); #Monocytes 0.9 thou/uL (0.11-0.59); #Neutrophils 8.1 thou/uL (1.40-6.50); %Basophils 0.3 % (0.0-1.0); %Eosinophils 2.5 % (0.0-10.0); %Monocytes 8.2 % (0.0-10.0); Hemoglobin 9.2 g/dL (14.0-18.0); Mean Corpuscular HGB CONC 34.4 g/dL (32.0-36.0); Mean Corpuscular Hemoglobin 32.8 pg (27.0-31.0); Mean Corpuscular Volume 95.4 fL (78.0-98.0); Mean Platelet Volume 8.2 fL (7.4-10.4); Platelet Count 188 thou/uL (130-400); RBC Distribution Width 14.2 % (11.5-14.5); Red Blood Cell (RBC) Count 2.81 mill/uL (4.70-6.10); White Blood Cell (WBC) Count 10.6 thou/uL (4.8-10.8)
[2020-12-06 05:01] LABS: Anion Gap 13 mmol/L (10-20); BUN (Urea Nitrogen) 29 mg/dL (8.4-25.7); Calc. Creatinine Clearance 23 mL/min (70-130); Calcium 7.9 mg/dL (7.8-10.44); Carbon Dioxide 16 mmol/L (23-31); Chloride 112 mmol/L (98-107); Glucose 87 mg/dL (83-110); Potassium 3.5 mmol/L (3.5-5.1); Sodium 137 mmol/L (136-145)
[2020-12-06] MEDS: NS 0.9% w/ 20 MEQ KCL 1,000 ML/1,000 ML BAG IV SCH (05:48)
[2020-12-06] MEDS: Nitroglycerin 2% Ointment 1 INCH/1 GM Packet TOP SCH ×2 (05:49→13:39)
[2020-12-06] MEDS: 1/2 NS w/KCL 20 mEq 1,000 ML IV SCH ×2 (09:07→22:44)
[2020-12-06] MEDS: Aspirin Chewable 81 MG TAB PO SCH (09:15)
[2020-12-06] MEDS: NIFEdipine XL 30 MG TAB PO SCH ×2 (09:15→20:46)
--- NOTE | 2020-12-06 18:31 | PDOC.HOSPP ---
- Subjective Encounter Date: 12/06/20 Encounter Time: 11:00 Subjective: Patient seen and examined for chest discomfort. Denies any new complaints. Epigastric pain improving. Tolerating modified diet - Objective Vital Signs & Weight: Vital Signs (12 hours) Temp Pulse Resp BP BP Pulse Ox 12/06/20 16:14 98.6 F 67 16 135/63 98 12/06/20 11:50 98.7 F 63 17 140/63 98 12/06/20 09:15 62 131/61 12/06/20 07:40 98.5 F 67 16 151/66 H 96 Weight Weight 169 lb 6.4 oz I&O: 12/05/20 12/06/20 12/07/20 06:59 06:59 06:59 Intake Total 600 660 Output Total 850 1425 Balance -250 -765 Result Diagrams: 12/06/20 04:21 12/06/20 04:21 EKG Reviewed by me: Yes (Sinus rhythm on telemetry) Hospitalist ROS - Review of Systems Gastrointestinal: denies: nausea, vomiting, abdominal pain, diarrhea, constip ation, melena, hematochezia, other Genitourinary: denies: dysuria, frequency, incontinence, hematuria, retention, other - Medication Medications: Active Medications Generic Name Dose Route Start Last Admin Trade Name Freq PRN Reason Stop Dose Admin Aspirin 81 mg 12/04/20 09:00 12/06/20 09:15 Aspirin Chewable 81 Mg Tab PO 81 mg DAILY JOSEPH Administration Atorvastatin Calcium 40 mg 12/03/20 21:00 12/05/20 20:52 Atorvastatin Calcium 40 Mg Tab PO 40 mg HS JOSEPH Administration Hydralazine HCl 10 mg 12/04/20 23:00 12/05/20 03:49 Hydralazine 20 Mg/Ml Vial SLOW IVP 10 mg Q4H PRN Administration SBP GREATER THAN 160 Potassium Chloride/Sodium Chloride 1,000 mls @ 75 mls/hr 12/06/20 09:00 12/06/20 09:07 1/2 Ns W/Kcl 20 Meq IV 1,000 mls .[id number] JOSEPH Administration Nifedipine 30 mg 12/05/20 21:00 12/06/20 09:15 Nifedipine Xl 30 Mg Tab PO 30 mg BID JOSEPH Administration Nitroglycerin 0.5 inch 12/03/20 22:00 12/06/20 13:39 Nitroglycerin 2% Ointment 1 Inch/1 Gm Packet TOP Not Given Q8HR JOSEPH Pantoprazole Sodium 40 mg 12/04/20 09:00 12/06/20 09:16 Pantoprazole 40 Mg Tab PO 40 mg DAILY JOSEPH Administration Sodium Chloride 10 ml 12/03/20 19:14 12/06/20 09:16 Flush - Normal Saline 10 Ml Syringe IVF 10 ml PRN PRN Administration Saline Flush - Exam General Appearance: awake alert Neck: supple, no JVD Heart: RRR, no gallops Respiratory: no wheezes, no ronchi Gastrointestinal: soft, non-distended Extremities: no cyanosis Neurological: no new deficit Psychiatric: A&O x 3 Hosp A/P - Plan DVT proph w/SCDs Patient is 85-year-old male with GERD, hypertension, CKD and esophageal stricture presented to the emergency room with chest discomfort along with swallowing difficulty on 12/03. Impression: Chest pain/dysphagia suspected due to esophageal in origin History of esophageal stricture Acute kidney injury on CKD stage IIIprobably hemodynamically mediated Hypokalemia Chronic cirrhosis with abnormal LFTs Anemia of chronic disease ? Speech difficulty x 1 month Plan: Renal function improving. Will change IV fluid to half NS with 20 8M EQ of potassium. Discontinue nitroglycerin patch. Continue Procardia XL. Continue PPIs. Probable DC in a.m. if stable. Echocardiogram showed ejection fraction 55 to 60% with left atrium dilatation, mild mitral regurgitation, mild tricuspid regurgitation and moderate aortic regurgitation 12/05 Patient was found to have esophageal ulcer at the junction of mid esophagus to lower esophagus with esophageal stricture requiring dilatation. Chest pain is improving. Patient's creatinine today is 3.1 from 3.67. Echocardiogram pending at this time we will replace potassium. Continue gentle hydration. Will add calcium channel kyung due to uncontrolled blood pressure. Continue other medications as above. Recheck labs in a.m. 12/04 We will continue nitroglycerin patch. GI and cardiology input appreciated. Replace potassium. Recheck labs in a.m. Continue other medications as above. Patient will probably need EGD and dilatation. As needed antihypertensives. Recheck labs in a.m.
[2020-12-06] MEDS: Atorvastatin Calcium 40 MG TAB PO SCH (20:46)
[2020-12-07 05:30] LABS: Anion Gap 11 mmol/L (10-20); BUN (Urea Nitrogen) 25 mg/dL (8.4-25.7); Calc. Creatinine Clearance 25 mL/min (70-130); Calcium 7.7 mg/dL (7.8-10.44); Carbon Dioxide 16 mmol/L (23-31); Chloride 111 mmol/L (98-107); Glucose 104 mg/dL (83-110); Potassium 3.6 mmol/L (3.5-5.1); Sodium 134 mmol/L (136-145)
[2020-12-07] MEDS: NIFEdipine XL 30 MG TAB PO SCH (07:59)
[2020-12-07] MEDS: Aspirin Chewable 81 MG TAB PO SCH (07:59)
[2020-12-07] MEDS ORDERED: Carvedilol 3.125 MG TAB PO SCH (09:00)
[2020-12-07] MEDS: Cyanocobalamin (Vitamin B-12) 1,000 MCG TAB PO SCH (09:30)
[2020-12-07] MEDS ORDERED: Amlodipine 5 MG TAB PO SCH (15:00)
[2020-12-07] MEDS: 1/2 NS w/KCL 20 mEq 1,000 ML IV SCH ×2 (15:40)
[2020-12-07] MEDS: Amlodipine 5 MG TAB PO SCH (20:23)
[2020-12-07] MEDS: Atorvastatin Calcium 40 MG TAB PO SCH (20:23)
[2020-12-07] MEDS ORDERED: cloNIDine 0.1 MG TAB PO SCH (21:00)
[2020-12-08] MEDS: 1/2 NS w/KCL 20 mEq 1,000 ML IV SCH (04:00)
[2020-12-08 04:56] LABS: Anion Gap 9 mmol/L (10-20); BUN (Urea Nitrogen) 24 mg/dL (8.4-25.7); Calc. Creatinine Clearance 23 mL/min (70-130); Calcium 7.6 mg/dL (7.8-10.44); Carbon Dioxide 18 mmol/L (23-31); Chloride 112 mmol/L (98-107); Glucose 100 mg/dL (83-110); Magnesium 1.9 mg/dL (1.6-2.6); Sodium 135 mmol/L (136-145)
[2020-12-08] MEDS: Amlodipine 5 MG TAB PO SCH (08:34)
[2020-12-08] MEDS: Aspirin Chewable 81 MG TAB PO SCH (08:34)
[2020-12-08] MEDS: Cyanocobalamin (Vitamin B-12) 1,000 MCG TAB PO SCH (08:34)
--- NOTE | 2020-12-08 11:27 | PDOC.HOSPP ---
- Subjective Encounter Date: 12/07/20 Encounter Time: 11:00 Subjective: Patient seen and examined for chest discomfort. Complains of some heartburn. Overall feeling better. Denies any new complaints. - Objective Vital Signs & Weight: Vital Signs (12 hours) Temp Pulse Resp BP Pulse Ox 12/08/20 08:34 98.2 F 70 16 137/62 95 12/08/20 05:25 94 L 12/08/20 04:00 98.2 F 64 16 138/63 94 L Weight Weight 169 lb 6.4 oz I&O: 12/07/20 12/08/20 12/09/20 06:59 06:59 06:59 Intake Total 1750 2820 Output Total 2200 1250 Balance -450 1570 Result Diagrams: 12/06/20 04:21 12/08/20 04:06 Additional Labs: Abnormal Lab Results - Last 48 hrs 12/07/20 04:51: Sodium 134 L, Chloride 111 H, Carbon Dioxide 16 L, Creatinine 2.34 H, Calcium 7.7 L EKG Reviewed by me: Yes (NSVT on telemetrypauses after beta-blockers) Hospitalist ROS - Review of Systems Cardiovascular: denies: chest pain, palpitations, orthopnea, paroxysmal noc. dyspnea, edema, light headedness, other Gastrointestinal: denies: nausea, vomiting, abdominal pain, diarrhea, constipation, melena, hematochezia, other - Medication Medications: Active Medications Generic Name Dose Route Start Last Admin Trade Name Freq PRN Reason Stop Dose Admin Amlodipine Besylate 5 mg 12/07/20 21:00 12/08/20 08:34 Amlodipine 5 Mg Tab PO 5 mg BID JOSEPH Administration Aspirin 81 mg 12/04/20 09:00 12/08/20 08:34 Aspirin Chewable 81 Mg Tab PO 81 mg DAILY JOSEPH Administration Atorvastatin Calcium 40 mg 12/03/20 21:00 12/07/20 20:23 Atorvastatin Calcium 40 Mg Tab PO 40 mg HS JOSEPH Administration Cyanocobalamin 1,000 mcg 12/07/20 09:00 12/08/20 08:34 Cyanocobalamin (Vitamin B-12) 1,000 Mcg Tab PO 1,000 mcg DAILY JOSEPH Administration Hydralazine HCl 10 mg 12/04/20 23:00 12/05/20 03:49 Hydralazine 20 Mg/Ml Vial SLOW IVP 10 mg Q4H PRN Administration SBP GREATER THAN 160 Potassium Chloride/Sodium Chloride 1,000 mls @ 75 mls/hr 12/06/20 09:00 12/08/20 04:00 1 Ns W/Kcl 20 Meq IV 1,000 mls .[id number] JOSEPH Administration Ondansetron HCl 4 mg 12/03/20 19:23 12/07/20 07:59 Ondansetron Odt 4 Mg Tab PO 4 mg Q6H PRN Administration Nausea/Vomiting Pantoprazole Sodium 40 mg 12/04/20 09:00 12/08/20 08:34 Pantoprazole 40 Mg Tab PO 40 mg DAILY JOSEPH Administration Sodium Chloride 10 ml 12/03/20 19:14 12/08/20 08:32 Flush - Normal Saline 10 Ml Syringe IVF 10 ml PRN PRN Administration Saline Flush - Exam General Appearance: awake alert Heart: RRR, no gallops Respiratory: no wheezes, no ronchi Gastrointestinal: soft, non-distended Extremities: no cyanosis, no clubbing Neurological: no new deficit Musculoskeletal: generalized weakness Psychiatric: A&O x 3 Hosp A/P - Plan DVT proph w/SCDs Patient is 85-year-old male with GERD, hypertension, CKD and esophageal stricture presented to the emergency room with chest discomfort along with swallowing difficulty on 12/03. Impression: Chest pain/dysphagia suspected due to esophageal in origin History of esophageal stricture Acute kidney injury on CKD stage IIIprobably hemodynamically mediated NSVT/sinus pauses Hypokalemia Chronic cirrhosis with abnormal LFTs Anemia of chronic disease ? Speech difficulty x 1 month Plan: Patient started developing sinus pauses after restarting beta-blockers. Continue gentle hydration. Echocardiogram reviewed. Continue PPIs. Patient's creatinine is probably stabilized. He was advised to follow-up with nephrology as outpatient. Will plan on discharging him tomorrow if no overnight events/okay with cardiology. 12/06 Renal function improving. Will change IV fluid to half NS with 20 8M EQ of potassium. Discontinue nitroglycerin patch. Continue Procardia XL. Continue PPIs. Probable DC in a.m. if stable. Echocardiogram showed ejection fraction 55 to 60% with left atrium dilatation, mild mitral regurgitation, mild tricuspid regurgitation and moderate aortic regurgitation 12/05 Patient was found to have esophageal ulcer at the junction of mid esophagus to lower esophagus with esophageal stricture requiring dilatation. Chest pain is improving. Patient's creatinine today is 3.1 from 3.67. Echocardiogram pending at this time we will replace potassium. Continue gentle hydration. Will add calcium channel kyung due to uncontrolled blood pressure. Continue other medications as above. Recheck labs in a.m. 12/04 We will continue nitroglycerin patch. GI and cardiology input appreciated. Replace potassium. Recheck labs in a.m. Continue other medications as above. Patient will probably need EGD and dilatation. As needed antihypertensives. Recheck labs in a.m.
--- NOTE | 2020-12-08 12:03 | PDOC.CPN ---
- Subjective Date: 12/08/20 Time: 12:01 Interval history: Had 5 beats of a wide complex rhythm, slow, likely NS SVT with aberrancy. Was started on BB and had 1.5 to 1.7 pauses since, asymptomatic and resolved after BB stopped. He denies chest pain. Had his esophagus dilated. - Review of Systems General: denies: fever/chills, weight/appetite/sleep changes, night sweats, fatigue Respiratory: denies: cough, congestion, shortness of breath, exercise intolerance Cardiovascular: denies: chest pain, palpitation, edema, paroxysmal nocturnal dyspnea, orthopnea Gastrointestinal: denies: nausea, vomiting, diarrhea, constipation, abd pain, GI bleeding Musculoskeletal: denies: pain, tenderness, stiffness, swelling, arthritis/arthralgias Neurological: denies: numbness, syncope, seizure, weakness - Objective Allergies/Adverse Reactions: Allergies Allergy/AdvReac Type Severity Reaction Status Date / Time Sulfa (Sulfonamide Allergy Verified 12/03/20 21:55 Antibiotics) Visit Medications: Current Medications Acetaminophen (Acetaminophen 325 Mg Tab) 650 mg PO Q4H PRN PRN Reason: Headache/Fever/Mild Pain (1-3) Amlodipine Besylate (Amlodipine 5 Mg Tab) 5 mg PO BID [facility] Last Admin: 12/08/20 08:34 Dose: 5 mg Documented by: Aspirin (Aspirin Chewable 81 Mg Tab) 81 mg PO DAILY [facility] Last Admin: 12/08/20 08:34 Dose: 81 mg Documented by: Atorvastatin Calcium (Atorvastatin Calcium 40 Mg Tab) 40 mg PO HS [facility] Last Admin: 12/07/20 20:23 Dose: 40 mg Documented by: Bisacodyl (Bisacodyl 5 Mg Tab) 10 mg PO DAILYPRN PRN PRN Reason: Constipation Calcium Carbonate (Calcium Carbonate 500 Mg Chewtab) 1,000 mg PO Q4H PRN PRN Reason: Heartburn or Indigestion Cyanocobalamin (Cyanocobalamin (Vitamin B-12) 1,000 Mcg Tab) 1,000 mcg PO DAILY [facility] Last Admin: 12/08/20 08:34 Dose: 1,000 mcg Documented by: Hydralazine HCl (Hydralazine 20 Mg/Ml Vial) 10 mg SLOW IVP Q4H PRN PRN Reason: SBP GREATER THAN 160 Last Admin: 12/05/20 03:49 Dose: 10 mg Documented by: Potassium Chloride/Sodium Chloride (1/2 Ns W/Kcl 20 Meq) 1,000 mls @ 75 mls/hr IV .[id number] [facility] Last Admin: 12/08/20 04:00 Dose: 1,000 mls Documented by: Nitroglycerin (Nitroglycerin 0.4 Mg Tab (25 Tab Bottle)) 0.4 mg SL Q5MIN PRN PRN Reason: Chest Pain Ondansetron HCl (Ondansetron Odt 4 Mg Tab) 4 mg PO Q6H PRN PRN Reason: Nausea/Vomiting Last Admin: 12/07/20 07:59 Dose: 4 mg Documented by: Pantoprazole Sodium (Pantoprazole 40 Mg Tab) 40 mg PO DAILY [facility] Last Admin: 12/08/20 08:34 Dose: 40 mg Documented by: Senna/Docusate Sodium (Senokot S 8.6-50 Mg Tab) 2 tab PO BID PRN PRN Reason: Constipation Sodium Chloride (Flush - Normal Saline 10 Ml Syringe) 10 ml IVF PRN PRN PRN Reason: Saline Flush Last Admin: 12/08/20 08:32 Dose: 10 ml Documented by: Vital Signs & Weight: Vital Signs Temp Pulse Resp BP Pulse Ox 12/08/20 08:34 98.2 F 70 16 137/62 95 12/08/20 05:25 94 L 12/08/20 04:00 98.2 F 64 16 138/63 94 L Weight 169 lb 6.4 oz - Physical Exam General: no apparent distress HEENT: mucus membranes moist Neck: supple neck Cardiac: regular rate and rhythm Lungs: normal breath sounds Abdomen: active bowel sounds Extremities: no edema Skin: clear Musculoskeletal: no pain - Labs Result Diagrams: 12/06/20 04:21 12/08/20 04:06 Troponin/CKMB Troponin I 0.021 ng/mL (< 0.028) 12/03/20 22:41 - Telemetry Sinus rhythms and dysrhythmias: sinus rhythm - Assessment/Plan Assessment/Plan: 1. Sinus pause, Very short 1.7 sec longest. PLAN: - Likely caused by initiation of BB. Normal LV function. Will plan on Monitor as outpatient. May discharge at any time from cardiac perspective. - Follow up in the office in 2-4 weeks.
[2020-12-08 13:59] VITALS: BP 140/68; TEMP 98.6
--- NOTE | 2020-12-08 19:15 | PDOC.DS.DS ---
Provider - Provider Date of Admission: 12/03/20 18:03 Date of Discharge: 12/08/20 Admitting Provider: Clifton Coker MD Consultations: Cardiology, Gastroentrology Primary Care Physician: Elyse Guerrero MD Course - Hospital Course Hospital Course: Patient is a 85-year-old male with esophageal stricture, hypertension and CKD presented to the emergency room with chest discomfort along with trouble swallowing. Please refer to the history and physical dated 12/03 for further details. The patient was admitted to the hospital with a diagnosis of chest discomfort along with hypertensive urgency with a maximum blood pressure of 196/78. Nitroglycerin patch was placed. He also required IV labetalol. Serial troponins remain negative. Patient was monitored on the telemetry unit. He was evaluated by cardiology as well as gastroenterology. He underwent EGD that showed esophageal stricture along with esophageal ulcer at the junction of the mid esophagus to lower esophagus with hiatal hernia. He underwent balloon dilatation of the stricture. Echocardiogram showed ejection fraction of 55 to 60% with mild mitral regurgitation, mild tricuspid regurgitation and moderate aortic regurgitation. He was also found to have intermittent SVT on the monitoring tech followed by pauses after initiation of beta-blockers. For this reason beta-blockers have been discontinued. He will follow up with cardiology. Event monitor will be arranged. Patient also had acute kidney injury with a maximum creatinine of 3.67 that improved to creatinine of 2.34 at discharge. He was advised to follow-up with nephrology as outpatient. He appears stable for discharge Final diagnosis: Chest pain/dysphagia suspected due to esophageal in origin History of esophageal stricture Acute kidney injury on CKD stage IIIprobably hemodynamically mediated NSVT/sinus pauses Hypokalemia Chronic cirrhosis with abnormal LFTs Anemia of chronic disease Resuscitation Status: 12/03/20 19:23 Resuscitation Status Routine Co-Sign Provider: Resuscitation Status: FULL: Full Resuscitation Discussed with: patient Additional comments: Jeb Moyer at [phone] - Labs Lab Results: 12/06/20 04:21 12/08/20 04:06 Abnormal Lab Results - Last 48 hrs 12/07/20 04:51: Sodium 134 L, Chloride 111 H, Carbon Dioxide 16 L, Creatinine 2.34 H, Calcium 7.7 L 12/08/20 04:06: Sodium 135 L, Chloride 112 H, Carbon Dioxide 18 L, Anion Gap 9 L, Creatinine 2.50 H, Calcium 7.6 L - Diagnostic Interpretation Other Additional comments: CT scan of the brainno acute findings Barium swallow showed mild narrowing at the distal esophagus Chest x-rayacute findings - Physical Exam Vitals: Vital Signs (12 hours) Temp Pulse Resp BP Pulse Ox 12/08/20 12:55 98.6 F 68 16 140/68 95 12/08/20 08:34 98.2 F 70 16 137/62 95 Weight Weight 169 lb 6.4 oz Physical Exam: The patient was seen and examined on the day of discharge. Plan - Discharge Medications Prescriptions: Amlodipine [Norvasc] 5 mg PO BID #60 tab Pantoprazole [Protonix] 40 mg PO DAILY #30 tab Ondansetron HCl [Zofran] 4 mg PO Q8H PRN #14 tablet PRN Reason: Nausea/Vomiting Home Medications: Medication Instructions Recorded Confirmed Type Tamsulosin HCl [Flomax] 0.4 mg PO DAILY 07/27/13 12/04/20 History Cyanocobalamin (Vitamin B-12) 1,000 mcg PO DAILY 02/05/19 12/04/20 History [Vitamin B-12] Dutasteride 0.5 mg PO DAILY 02/05/19 12/04/20 History Folic Acid 1 mg PO DAILY 02/05/19 12/04/20 History Allopurinol 100 mg PO DAILY 12/04/20 12/04/20 History Cholecalciferol (Vitamin D3) 1,000 unit PO DAILY 12/05/20 12/05/20 History [Vitamin D3] Difluprednate [Durezol] 1 drop OP BID 12/05/20 12/05/20 History Moxifloxacin HCl [Moxifloxacin] 1 drop OP BID 12/05/20 12/05/20 History Pnv,Calcium 72/Iron/Folic Acid 1 tab PO DAILY 12/05/20 12/05/20 History [M- Plus Tablet] Amlodipine [Norvasc] 5 mg PO BID #60 tab 12/08/20 Rx Aspirin Chewable [Aspirin Chewable 81 mg PO DAILY tab 12/08/20 Rx Tablet] Ondansetron HCl [Zofran] 4 mg PO Q8H PRN #14 tablet 12/08/20 Rx Pantoprazole [Protonix] 40 mg PO DAILY #30 tab 12/08/20 Rx Allergies: Sulfa (Sulfonamide Antibiotics) Allergy (Verified 12/03/20 21:55) - Discharge Instructions Discharge Instructions:: Event monitor Fall precautions 24 hr supervision STOP Coreg/Clonidine/Hydralazine/Spironolactone/Lasix BMP after 1 week - PCP to arrange/follow - Follow up Plan Referrals: Elyse Guerrero MD [Primary Care Provider] - 7 Days (Please call the office and schedule a follow up appointment) López Ni MD [Active] - 14 Days (Please call the office and schedule a follow up appointment) Tono Paige MD [Active] - 2-3 Weeks (Please call the office and schedule a follow up appointment) Elodia Acharya MD [Active] - 7 Days (Please call office for appointment) Disposition: HOME Quality - Care Measures CORE MEASURES:: N/A
== END 2020-12-08 14:32 | disposition home or self-care (01) | DRG 381 ==
LOC: ERS 16:07 → 2NO 18:03
PROVIDERS: ADMIT Internal Medicine; ATTEND Internal Medicine
PROC: 0DB78ZX Excision of Stomach, Pylorus, Via Natural or Artificial Opening Endoscopic, Diagnostic (ICD-10-PCS; principal; 2020-12-05)
PROC: 0D758ZZ Dilation of Esophagus, Via Natural or Artificial Opening Endoscopic (ICD-10-PCS; 2020-12-05)
DX: K22.10 Ulcer of esophagus without bleeding (principal); N17.9 Acute kidney failure, unspecified; I47.2 Ventricular tachycardia; N18.4 Chronic kidney disease, stage 4 (severe); K22.2 Esophageal obstruction; K44.9 Diaphragmatic hernia without obstruction or gangrene; I16.0 Hypertensive urgency; I12.9 Hypertensive chronic kidney disease with stage 1 through stage 4 chronic kidney disease, or unspecified chronic kidney disease; Z23 Encounter for immunization; F10.11 Alcohol abuse, in remission; I08.3 Combined rheumatic disorders of mitral, aortic and tricuspid valves; E87.6 Hypokalemia; D63.1 Anemia in chronic kidney disease; R13.10 Dysphagia, unspecified; K21.9 Gastro-esophageal reflux disease without esophagitis; M10.9 Gout, unspecified; E53.8 Deficiency of other specified B group vitamins; E11.22 Type 2 diabetes mellitus with diabetic chronic kidney disease; D72.829 Elevated white blood cell count, unspecified; K29.50 Unspecified chronic gastritis without bleeding; K31.7 Polyp of stomach and duodenum; K70.30 Alcoholic cirrhosis of liver without ascites; Z88.2 Allergy status to sulfonamides
CPT/HCPCS: 36415; 70450; 71045; 74220; 76770; 80048; 80053; 80061; 81001; 82607; 82746; 83036; 83690; 83735; 83880; 84100; 84443; 84484; 85007; 85025; 85027; 88305; 88312; 90471; 90732; 93005; 93010; 93306; 94760; 96374; G0009; J0360; J2704; J3480; Q0162

== ENCOUNTER 2022-05-25 11:24 | Emergency (ER) | payer MEDICARE, MEDICAID ==
[2022-05-25 12:30] LABS: #Eosinphils 0.5 thou/uL (0.0-0.7); #Lymphocytes 1.2 thou/uL (1.20-3.40); #Monocytes 0.8 thou/uL (0.11-0.59); #Neutrophils 7.4 thou/uL (1.40-6.50); %Basophils 0.4 % (0.0-1.0); %Eosinophils 5.3 % (0.0-10.0); %Lymphocytes 12.3 % (21.0-51.0); %Monocytes 8.1 % (0.0-10.0); %Neutrophils 73.9 % (42.0-75.0); Hemoglobin 9.4 g/dL (14.0-18.0); Mean Corpuscular HGB CONC 34.2 g/dL (32.0-36.0); Mean Corpuscular Hemoglobin 31.4 pg (27.0-31.0); Mean Corpuscular Volume 91.7 fL (78.0-98.0); Mean Platelet Volume 7.4 fL (7.4-10.4); Platelet Count 250 thou/uL (130-400); RBC Distribution Width 14.3 % (11.5-14.5); Red Blood Cell (RBC) Count 2.98 mill/uL (4.70-6.10); White Blood Cell (WBC) Count 10.1 thou/uL (4.8-10.8)
[2022-05-25 13:08] LABS: AST (SGOT) 11 U/L (5-34); Albumin 3.6 g/dL (3.4-4.8); Anion Gap 13 mmol/L (10-20); Bilirubin, Total 1.1 mg/dL (0.2-1.2); Calc. Creatinine Clearance 0 mL/min (70-130); Carbon Dioxide 26 mmol/L (23-31); Chloride 103 mmol/L (98-107); Estimated GFR 15; Potassium 3.3 mmol/L (3.5-5.1); Protein, Total 6.6 g/dL (5.8-8.1); Sodium 139 mmol/L (136-145)
[2022-05-25] MEDS ORDERED: Boostrix 0.5 ML (Tdap) VIAL ONE (13:27)
[2022-05-25] MEDS ORDERED: Lidocaine 1% PF 5 ML VIAL ONE (13:29)
[2022-05-25 13:59] LABS: ALT (SGPT) 7 U/L (8-55); Alkaline Phosphatase 82 U/L (40-110); BUN (Urea Nitrogen) 35 mg/dL (8.4-25.7); Glucose 115 mg/dL (83-110)
== END 2022-05-25 14:37 | disposition home or self-care (01) ==
LOC: ERS 11:24
DX: S80.11XA Contusion of right lower leg, initial encounter (principal); L02.415 Cutaneous abscess of right lower limb; D64.9 Anemia, unspecified; I13.0 Hypertensive heart and chronic kidney disease with heart failure and stage 1 through stage 4 chronic kidney disease, or unspecified chronic kidney disease; N18.9 Chronic kidney disease, unspecified; I50.9 Heart failure, unspecified; K21.9 Gastro-esophageal reflux disease without esophagitis; M10.9 Gout, unspecified; E78.00 Pure hypercholesterolemia, unspecified; N40.0 Benign prostatic hyperplasia without lower urinary tract symptoms; Z23 Encounter for immunization; W22.8XXA Striking against or struck by other objects, initial encounter
CPT/HCPCS: 27301; 36415; 80053; 83605; 85025; 87070; 87077; 87186; 87205; 90471; 90715

== ENCOUNTER 2023-09-06 18:58 | Inpatient (IN) | payer MEDICARE, MEDICAID ==
[2023-09-06 19:59] LABS: #Eosinphils 0.1 thou/uL (0.0-0.7); #Monocytes 0.7 thou/uL (0.11-0.59); #Neutrophils 11.7 thou/uL (1.40-6.50); %Basophils 0.2 % (0.0-1.0); %Eosinophils 0.5 % (0.0-10.0); %Lymphocytes 4.9 % (21.0-51.0); %Monocytes 5.1 % (0.0-10.0); Hematocrit 29.3 % (42.0-52.0); Mean Corpuscular HGB CONC 34.1 g/dL (32.0-36.0); Mean Corpuscular Hemoglobin 31.2 pg (27.0-31.0); Mean Corpuscular Volume 91.3 fl (78.0-98.0); Mean Platelet Volume 10.6 fL (7.4-10.4); Platelet Count 213 10x3/uL (130-400); RBC Distribution Width 17.1 % (11.5-14.5); Red Blood Cell (RBC) Count 3.21 mill/uL (4.70-6.10); White Blood Cell (WBC) Count 13.2 10x3/uL (4.8-10.8)
[2023-09-06 20:13] LABS: INR-International Normal Ratio 1.2; Prothrombin Time 16.1 sec (12.0-14.7)
[2023-09-06 20:14] LABS: PTT 38.6 sec (22.9-36.1)
[2023-09-06] MEDS ORDERED: Aspirin Chewable 81 MG TAB ONE (21:09)
[2023-09-06 21:57] LABS: Bacteria/HPF None Seen HPF (None Seen); Bilirubin Negative (Negative); Blood, Urine 3+ (Negative); CAUTI Indications for Culture Alt mental st,lethar; Clarity Clear (Clear); Glucose, Urine (Dipstick) Normal (Negative); Ketone, Urine Negative (Negative); Leukocyte Negative Leu/uL (Negative); Nitrite Negative (Negative); Protein, Urine (Dipstick) 200 mg/dL (Neg-Trace); RBC/HPF 21-50 HPF (0-3); Specific Gravity, Urine 1.012 (1.002-1.036); Squamous Epithelial None Seen HPF (0-3); Urobilinogen Normal mg/dL (Less than 2); WBC/HPF 0-3 HPF (0-3)
[2023-09-06 22:00] LABS: Urine Culture Reflex No No
[2023-09-06 22:01] LABS: Amphetamine Not Detected (NotDetected); Barbiturates Screen Not Detected (NotDetected); Benzodiazepine Screen Not Detected (NotDetected); Cocaine Metabolite Screen Not Detected (NotDetected); Methadone Not Detected (NotDetected); Methamphetamine Not Detected (NotDetected); Opiate Screen Not Detected (NotDetected); Oxycodone Screen Not Detected (NotDetected); Phencyclidine (PCP) Not Detected (NotDetected); THC/Cannabinoid Screen Not Detected (NotDetected); Tricyclic Screen Not Detected (NotDetected)
[2023-09-06 22:04] LABS: Troponin I 1.754 ng/mL (< 0.028)
[2023-09-06 22:05] LABS: Critical Call Chem Troponin I RESULT DECREASING; Troponin I 1.752 ng/mL (< 0.028)
[2023-09-06] MEDS ORDERED: Acetaminophen 650 MG Suppository PR PRN (22:44)
[2023-09-06] MEDS ORDERED: Ondansetron PF 4 MG/2 ML Vial IVP PRN (22:44)
[2023-09-06 22:58] LABS: Albumin 4.2 g/dL (3.4-4.8); Sodium 144 mmol/L (136-145)
[2023-09-06 22:59] LABS: ALT (SGPT) 21 U/L (8-55); AST (SGOT) 53 U/L (5-34); Acetaminophen Less than 10 mcg/mL (10.0-30.0); Alcohol Less than 10.0 mg/dL (Less than 10); Alkaline Phosphatase 79 U/L (40-110); Anion Gap 15 mmol/L (10-20); BUN (Urea Nitrogen) 54 mg/dL (8.4-25.7); Bilirubin, Total 3.4 mg/dL (0.2-1.2); CK (CPK) 1183 U/L (30-200); Calc. Creatinine Clearance 0 mL/min (70-130); Calcium 9.7 mg/dL (7.8-10.44); Carbon Dioxide 19 mmol/L (23-31); Chloride 113 mmol/L (98-107); Estimated GFR 16; Globulin 2.7 g/dL (2.4-3.5); Glucose 172 mg/dL (83-110); Lipase 16 U/L (8-78); Protein, Total 6.9 g/dL (5.8-8.1); Salicylate Less than 8.0 mg/dL (15.0-30.0)
[2023-09-06] MEDS ORDERED: Potassium Chloride 20 MEQ in Premix 1 BAG IVPB SCH (23:30)
[2023-09-07] MEDS: Sodium Chloride 0.9% 1,000 ML IV SCH ×2 (01:29→08:51)
[2023-09-07] MEDS ORDERED: Piperacillin/Tazobactam 3.375 GM in Sodium Chloride 0.9% 100 ML IVPB SCH ×2 (02:00→06:00)
[2023-09-07 02:43] LABS: #Eosinphils 0.2 thou/uL (0.0-0.7); #Neutrophils 10.4 thou/uL (1.40-6.50); %Basophils 0.2 % (0.0-1.0); %Eosinophils 1.3 % (0.0-10.0); %Lymphocytes 7.4 % (21.0-51.0); %Monocytes 7.8 % (0.0-10.0); Hematocrit 24.5 % (42.0-52.0); Hemoglobin 8.5 g/dL (14.0-18.0); Mean Corpuscular HGB CONC 34.7 g/dL (32.0-36.0); Mean Corpuscular Hemoglobin 31.6 pg (27.0-31.0); Mean Corpuscular Volume 91.1 fl (78.0-98.0); Mean Platelet Volume 10.8 fL (7.4-10.4); Platelet Count 196 10x3/uL (130-400); RBC Distribution Width 17.1 % (11.5-14.5); Red Blood Cell (RBC) Count 2.69 mill/uL (4.70-6.10); White Blood Cell (WBC) Count 12.5 10x3/uL (4.8-10.8)
[2023-09-07 03:34] LABS: Critical Call Chem Troponin I RESULT DECREASING; Troponin I 1.665 ng/mL (< 0.028)
[2023-09-07 04:06] LABS: ALT (SGPT) 20 U/L (8-55); AST (SGOT) 50 U/L (5-34); Albumin 3.6 g/dL (3.4-4.8); Alkaline Phosphatase 70 U/L (40-110); Anion Gap 17 mmol/L (10-20); BUN (Urea Nitrogen) 53 mg/dL (8.4-25.7); CK (CPK) 1002 U/L (30-200); Calc. Creatinine Clearance 16 mL/min (70-130); Calcium 8.8 mg/dL (7.8-10.44); Carbon Dioxide 17 mmol/L (23-31); Chloride 113 mmol/L (98-107); Estimated GFR 17; Globulin 2.4 g/dL (2.4-3.5); Glucose 119 mg/dL (83-110); Magnesium 2.3 mg/dL (1.6-2.6); Potassium 2.9 mmol/L (3.5-5.1); Sodium 144 mmol/L (136-145)
[2023-09-07 04:24] LABS: Troponin I 1.743 ng/mL (< 0.028)
[2023-09-07] MEDS ORDERED: Potassium Chloride 40 MEQ in Premix 1 BAG IVPB SCH (08:00)
[2023-09-07] MEDS: Pantoprazole 40 MG VIAL IVP SCH (08:51)
[2023-09-07] MEDS: Piperacillin/Tazobactam 3.375 GM in Sodium Chloride 0.9% 100 ML IVPB SCH ×2 (08:51→20:40)
[2023-09-07] MEDS ORDERED: FLU VACC QS2023(65UP)/MF59C/PF 60 MCG/0.5 ML SYRINGE IM ONE (09:00)
[2023-09-07] MEDS: Epoetin (ESRD) 10,000 UNITS/ML VIAL SC SCH (15:18)
[2023-09-07] MEDS: Sodium Bicarbonate 150 MEQ in Dextrose 5% in Water 1,000 ML IV SCH (16:27)
[2023-09-07] MEDS: Acetaminophen 325 MG TAB PO PRN (18:00)
[2023-09-08 04:44] LABS: #Eosinphils 0.3 thou/uL (0.0-0.7); #Monocytes 1.3 thou/uL (0.11-0.59); #Neutrophils 13.3 thou/uL (1.40-6.50); %Basophils 0.2 % (0.0-1.0); %Eosinophils 1.7 % (0.0-10.0); %Lymphocytes 7.5 % (21.0-51.0); %Monocytes 8.1 % (0.0-10.0); Hematocrit 24.5 % (42.0-52.0); Hemoglobin 8.5 g/dL (14.0-18.0); Mean Corpuscular HGB CONC 34.7 g/dL (32.0-36.0); Mean Corpuscular Volume 89.4 fl (78.0-98.0); Mean Platelet Volume 11.6 fL (7.4-10.4); Platelet Count 198 10x3/uL (130-400); RBC Distribution Width 17.3 % (11.5-14.5); Red Blood Cell (RBC) Count 2.74 mill/uL (4.70-6.10); White Blood Cell (WBC) Count 16.2 10x3/uL (4.8-10.8)
[2023-09-08 05:12] LABS: ALT (SGPT) 21 U/L (8-55); AST (SGOT) 39 U/L (5-34); Albumin 3.4 g/dL (3.4-4.8); Alkaline Phosphatase 61 U/L (40-110); Anion Gap 11 mmol/L (10-20); BUN (Urea Nitrogen) 45 mg/dL (8.4-25.7); Bilirubin, Total 2.1 mg/dL (0.2-1.2); Calc. Creatinine Clearance 17 mL/min (70-130); Calcium 8.3 mg/dL (7.8-10.44); Carbon Dioxide 23 mmol/L (23-31); Chloride 111 mmol/L (98-107); Estimated GFR 18; Globulin 2.2 g/dL (2.4-3.5); Glucose 129 mg/dL (83-110); Magnesium 2.1 mg/dL (1.6-2.6); Potassium 2.9 mmol/L (3.5-5.1); Protein, Total 5.6 g/dL (5.8-8.1); Sodium 142 mmol/L (136-145)
[2023-09-08] MEDS: Piperacillin/Tazobactam 3.375 GM in Sodium Chloride 0.9% 100 ML IVPB SCH ×2 (09:27→21:05)
[2023-09-08] MEDS: Pantoprazole 40 MG VIAL IVP SCH (09:27)
[2023-09-08] MEDS ORDERED: hydrALAZINE 25 MG TAB PO SCH (09:45)
[2023-09-08] MEDS ORDERED: Amlodipine 10 MG TAB PO SCH (09:45)
[2023-09-08] MEDS ORDERED: Carvedilol 6.25 MG TAB PO SCH (09:45)
[2023-09-08] MEDS: Acetaminophen 325 MG TAB PO PRN (10:32)
[2023-09-08] MEDS: Potassium Chloride 20 MEQ in Premix 1 BAG IVPB SCH ×4 (10:32→16:15)
[2023-09-08] MEDS: Sodium Bicarbonate 150 MEQ in Dextrose 5% in Water 1,000 ML IV SCH (10:33)
[2023-09-08] MEDS: Carvedilol 6.25 MG TAB PO SCH (21:01)
[2023-09-08] MEDS ORDERED: Heparin 10,000 UNITS/ 10 ML VIAL SLOW IVP SCH (22:45)
[2023-09-08] MEDS: Heparin 25,000 units/D5W 500 ML IV SCH (22:57)
[2023-09-09] MEDS ORDERED: Furosemide 40 MG/4 ML VIAL ONE (00:08)
[2023-09-09] MEDS ORDERED: Furosemide 40 MG/4 ML VIAL SLOW IVP SCH (00:15)
[2023-09-09] MEDS ORDERED: Ipratropium/Albuterol 3 ML NEB NEB SCH (00:15)
[2023-09-09 00:16] LABS: #Basophils 0.1 thou/uL (0.0-0.2); #Eosinphils 0.1 thou/uL (0.0-0.7); #Monocytes 1.4 thou/uL (0.11-0.59); #Neutrophils 18.7 thou/uL (1.40-6.50); %Basophils 0.3 % (0.0-1.0); %Eosinophils 0.6 % (0.0-10.0); %Lymphocytes 4.6 % (21.0-51.0); %Monocytes 6.5 % (0.0-10.0); %Neutrophils 87.3 % (42.0-75.0); Hematocrit 27.9 % (42.0-52.0); Hemoglobin 9.7 g/dL (14.0-18.0); Mean Corpuscular HGB CONC 34.8 g/dL (32.0-36.0); Mean Corpuscular Hemoglobin 31.5 pg (27.0-31.0); Mean Corpuscular Volume 90.6 fl (78.0-98.0); Mean Platelet Volume 10.6 fL (7.4-10.4); Platelet Count 265 10x3/uL (130-400); RBC Distribution Width 17.4 % (11.5-14.5); Red Blood Cell (RBC) Count 3.08 mill/uL (4.70-6.10); White Blood Cell (WBC) Count 21.5 10x3/uL (4.8-10.8)
[2023-09-09 00:18] LABS: Actual Bicarbonate (HCO3a) 21.8 mEq/L (22-28); Base Excess (BEa) -0.7 mEq/L (-2.0 to +3.0); CO2 Tension 28.7 mmHg (35.0-45.0); Calcium, Ionized (arterial) 1.09 mmol/L (1.12-1.30); Carboxyhemoglobin (COHb) 0.2 gm% (0.0-3.0); Hematocrit-ABG 30 % (42.0-52.0); Hemoglobin (Hb) 10.1 g/dL (14.0-18.0); pH, Arterial 7.498 (7.35-7.45)
[2023-09-09 00:29] LABS: O2 Tension (PaO2), arterial 41.1 mmHg (> 60.0); Puncture Site LBA
[2023-09-09] MEDS ORDERED: Furosemide 20 MG/2 ML VIAL SLOW IVP SCH ×2 (00:30→01:45)
[2023-09-09 00:44] LABS: ALT (SGPT) 27 U/L (8-55); AST (SGOT) 47 U/L (5-34); Albumin 3.6 g/dL (3.4-4.8); Alkaline Phosphatase 68 U/L (40-110); Anion Gap 17 mmol/L (10-20); BUN (Urea Nitrogen) 42 mg/dL (8.4-25.7); Bilirubin, Total 2.5 mg/dL (0.2-1.2); Calc. Creatinine Clearance 17 mL/min (70-130); Calcium 8.5 mg/dL (7.8-10.44); Carbon Dioxide 20 mmol/L (23-31); Chloride 109 mmol/L (98-107); Estimated GFR 18; Globulin 2.7 g/dL (2.4-3.5); Glucose 188 mg/dL (83-110); Magnesium 1.9 mg/dL (1.6-2.6); Potassium 3.6 mmol/L (3.5-5.1); Protein, Total 6.3 g/dL (5.8-8.1); Sodium 142 mmol/L (136-145)
[2023-09-09 01:18] LABS: Troponin I 0.673 ng/mL (< 0.028)
[2023-09-09] MEDS ORDERED: Ipratropium/Albuterol 3 ML NEB NEB PRN (01:33)
[2023-09-09 01:53] LABS: SARS-CoV-2 NAA Rapid Test Not Detected (NotDetected)
[2023-09-09 02:23] LABS: #Monocytes 1.2 thou/uL (0.11-0.59); #Neutrophils 17.3 thou/uL (1.40-6.50); %Basophils 0.2 % (0.0-1.0); %Eosinophils 0.1 % (0.0-10.0); %Lymphocytes 3.8 % (21.0-51.0); %Monocytes 6.2 % (0.0-10.0); %Neutrophils 89.1 % (42.0-75.0); Hematocrit 27.8 % (42.0-52.0); Hemoglobin 9.7 g/dL (14.0-18.0); Mean Corpuscular HGB CONC 34.9 g/dL (32.0-36.0); Mean Corpuscular Hemoglobin 31.5 pg (27.0-31.0); Mean Corpuscular Volume 90.3 fl (78.0-98.0); Mean Platelet Volume 10.9 fL (7.4-10.4); Platelet Count 252 10x3/uL (130-400); RBC Distribution Width 17.5 % (11.5-14.5); Red Blood Cell (RBC) Count 3.08 mill/uL (4.70-6.10); White Blood Cell (WBC) Count 19.4 10x3/uL (4.8-10.8)
[2023-09-09 02:58] LABS: Actual Bicarbonate (HCO3a) 22.9 mEq/L (22-28); Base Excess (BEa) 1.9 mEq/L (-2.0 to +3.0); Calcium, Ionized (arterial) 1.07 mmol/L (1.12-1.30); Carboxyhemoglobin (COHb) 0.3 gm% (0.0-3.0); Hematocrit-ABG 30 % (42.0-52.0); Hemoglobin (Hb) 10.2 g/dL (14.0-18.0); Potassium - ABG Lab 3.56 mmol/L (3.70-5.30); pH, Arterial 7.582 (7.35-7.45)
[2023-09-09 03:09] LABS: CO2 Tension 24.9 mmHg (35.0-45.0); O2 Tension (PaO2), arterial 46.5 mmHg (> 60.0); Puncture Site RRA
[2023-09-09 03:16] LABS: ALT (SGPT) 27 U/L (8-55); AST (SGOT) 46 U/L (5-34); Albumin 3.7 g/dL (3.4-4.8); Alkaline Phosphatase 68 U/L (40-110); Anion Gap 19 mmol/L (10-20); BUN (Urea Nitrogen) 41 mg/dL (8.4-25.7); Bilirubin, Total 2.3 mg/dL (0.2-1.2); Calc. Creatinine Clearance 18 mL/min (70-130); Calcium 8.6 mg/dL (7.8-10.44); Carbon Dioxide 20 mmol/L (23-31); Chloride 108 mmol/L (98-107); Estimated GFR 18; Globulin 2.8 g/dL (2.4-3.5); Glucose 144 mg/dL (83-110); Potassium 3.6 mmol/L (3.5-5.1); Protein, Total 6.5 g/dL (5.8-8.1); Sodium 143 mmol/L (136-145)
[2023-09-09 03:53] LABS: Lactic Acid 1.8 mmol/L (0.5-2.2)
[2023-09-09 05:21] LABS: Actual Bicarbonate (HCO3a) 22.4 mEq/L (22-28); Base Excess (BEa) 0.7 mEq/L (-2.0 to +3.0); CO2 Tension 26.2 mmHg (35.0-45.0); Calcium, Ionized (arterial) 1.07 mmol/L (1.12-1.30); Carboxyhemoglobin (COHb) 0.3 gm% (0.0-3.0); Hematocrit-ABG 30 % (42.0-52.0); Hemoglobin (Hb) 10.1 g/dL (14.0-18.0); Potassium - ABG Lab 3.55 mmol/L (3.70-5.30); pH, Arterial 7.549 (7.35-7.45)
[2023-09-09 05:22] LABS: Puncture Site LBA
[2023-09-09] MEDS: Piperacillin/Tazobactam 3.375 GM in Sodium Chloride 0.9% 100 ML IVPB SCH ×2 (08:42→20:27)
[2023-09-09] MEDS: Amlodipine 10 MG TAB PO SCH (08:42)
[2023-09-09] MEDS: Carvedilol 6.25 MG TAB PO SCH ×2 (08:43→20:28)
[2023-09-09] MEDS: Calcitriol 0.25 MCG CAP PO SCH (08:43)
[2023-09-09] MEDS: Gabapentin 100 MG CAP PO SCH (08:43)
[2023-09-09] MEDS: Pantoprazole 40 MG VIAL IVP SCH (08:43)
[2023-09-09] MEDS: hydrALAZINE 25 MG TAB PO SCH (08:44)
[2023-09-09] MEDS: Tamsulosin HCl 0.4 MG CAP PO SCH (08:44)
[2023-09-09] MEDS ORDERED: Carvedilol 6.25 MG TAB PO SCH (09:00)
[2023-09-10 04:00] LABS: #Eosinphils 0.1 thou/uL (0.0-0.7); #Monocytes 1.4 thou/uL (0.11-0.59); #Neutrophils 11.7 thou/uL (1.40-6.50); %Basophils 0.2 % (0.0-1.0); %Eosinophils 0.4 % (0.0-10.0); %Lymphocytes 9.7 % (21.0-51.0); %Monocytes 9.4 % (0.0-10.0); %Neutrophils 79.6 % (42.0-75.0); Hematocrit 25.3 % (42.0-52.0); Hemoglobin 8.7 g/dL (14.0-18.0); Mean Corpuscular HGB CONC 34.4 g/dL (32.0-36.0); Mean Corpuscular Hemoglobin 31.5 pg (27.0-31.0); Mean Corpuscular Volume 91.7 fl (78.0-98.0); Mean Platelet Volume 11.8 fL (7.4-10.4); Platelet Count 243 10x3/uL (130-400); RBC Distribution Width 17.3 % (11.5-14.5); Red Blood Cell (RBC) Count 2.76 mill/uL (4.70-6.10); White Blood Cell (WBC) Count 14.8 10x3/uL (4.8-10.8)
[2023-09-10 04:23] LABS: Anion Gap 15 mmol/L (10-20); BUN (Urea Nitrogen) 46 mg/dL (8.4-25.7); Calc. Creatinine Clearance 17 mL/min (70-130); Calcium 8.4 mg/dL (7.8-10.44); Carbon Dioxide 21 mmol/L (23-31); Chloride 109 mmol/L (98-107); Estimated GFR 17; Glucose 121 mg/dL (83-110); Sodium 142 mmol/L (136-145)
[2023-09-10] MEDS: Heparin 25,000 units/D5W 500 ML IV SCH (04:35)
[2023-09-10] MEDS: Furosemide 20 MG/2 ML VIAL SLOW IVP SCH ×2 (05:59→13:19)
[2023-09-10] MEDS: Pantoprazole 40 MG VIAL IVP SCH (09:01)
[2023-09-10] MEDS: Carvedilol 6.25 MG TAB PO SCH ×2 (09:01→20:06)
[2023-09-10] MEDS: Piperacillin/Tazobactam 3.375 GM in Sodium Chloride 0.9% 100 ML IVPB SCH ×2 (09:01→20:07)
[2023-09-10] MEDS: Tamsulosin HCl 0.4 MG CAP PO SCH (09:02)
[2023-09-10] MEDS: Calcitriol 0.25 MCG CAP PO SCH (09:02)
[2023-09-10] MEDS: Gabapentin 100 MG CAP PO SCH (09:02)
[2023-09-10] MEDS: Amlodipine 10 MG TAB PO SCH (09:02)
[2023-09-10] MEDS: hydrALAZINE 25 MG TAB PO SCH (09:03)
[2023-09-10 09:57] LABS: Hemoglobin 8.9 g/dL (14.0-18.0)
[2023-09-10] MEDS ORDERED: Potassium Bicarbonate/Cit Ac 20 MEQ TAB PO SCH (10:00)
[2023-09-10] MEDS: Potassium Chloride 20 MEQ in Premix 1 BAG IVPB SCH ×3 (11:27→15:19)
[2023-09-11 04:06] LABS: Hemoglobin 8.5 g/dL (14.0-18.0); Mean Corpuscular HGB CONC 32.7 g/dL (32.0-36.0); Mean Corpuscular Hemoglobin 31.1 pg (27.0-31.0); Mean Corpuscular Volume 95.2 fl (78.0-98.0); Mean Platelet Volume 11.5 fL (7.4-10.4); Platelet Count 256 10x3/uL (130-400); RBC Distribution Width 17.6 % (11.5-14.5); Red Blood Cell (RBC) Count 2.73 mill/uL (4.70-6.10); White Blood Cell (WBC) Count 13.9 10x3/uL (4.8-10.8)
[2023-09-11 04:36] LABS: Anion Gap 18 mmol/L (10-20); BUN (Urea Nitrogen) 58 mg/dL (8.4-25.7); Calc. Creatinine Clearance 16 mL/min (70-130); Calcium 8.6 mg/dL (7.8-10.44); Carbon Dioxide 17 mmol/L (23-31); Chloride 109 mmol/L (98-107); Estimated GFR 16; Glucose 107 mg/dL (83-110); Potassium 3.5 mmol/L (3.5-5.1); Sodium 140 mmol/L (136-145)
[2023-09-11] MEDS: Furosemide 20 MG/2 ML VIAL SLOW IVP SCH ×2 (05:37→14:03)
[2023-09-11] MEDS: Piperacillin/Tazobactam 3.375 GM in Sodium Chloride 0.9% 100 ML IVPB SCH ×2 (10:24→21:38)
[2023-09-11] MEDS: Tamsulosin HCl 0.4 MG CAP PO SCH (10:24)
[2023-09-11] MEDS: Pantoprazole 40 MG VIAL IVP SCH (10:24)
[2023-09-11] MEDS: Carvedilol 6.25 MG TAB PO SCH ×2 (10:25→21:38)
[2023-09-11] MEDS: Calcitriol 0.25 MCG CAP PO SCH (10:25)
[2023-09-11] MEDS: Gabapentin 100 MG CAP PO SCH (10:25)
[2023-09-11] MEDS: hydrALAZINE 25 MG TAB PO SCH (10:26)
[2023-09-11] MEDS: Amlodipine 10 MG TAB PO SCH (10:27)
[2023-09-11] MEDS ORDERED: Melatonin 3 MG TAB PO SCH (20:30)
[2023-09-11] MEDS ORDERED: QUEtiapine 25 MG TAB PO SCH (22:45)
[2023-09-12 04:11] LABS: Hematocrit 27.1 % (42.0-52.0); Hemoglobin 9.2 g/dL (14.0-18.0); Mean Corpuscular HGB CONC 33.9 g/dL (32.0-36.0); Mean Corpuscular Hemoglobin 31.2 pg (27.0-31.0); Platelet Count 267 10x3/uL (130-400); RBC Distribution Width 17.4 % (11.5-14.5); Red Blood Cell (RBC) Count 2.95 mill/uL (4.70-6.10); White Blood Cell (WBC) Count 20.6 10x3/uL (4.8-10.8)
[2023-09-12 04:15] LABS: Mean Corpuscular Volume 91.9 fl (78.0-98.0)
[2023-09-12 04:36] LABS: Anion Gap 17 mmol/L (10-20); BUN (Urea Nitrogen) 62 mg/dL (8.4-25.7); CK (CPK) 22 U/L (30-200); Calc. Creatinine Clearance 15 mL/min (70-130); Calcium 8.8 mg/dL (7.8-10.44); Carbon Dioxide 19 mmol/L (23-31); Chloride 113 mmol/L (98-107); Estimated GFR 15; Glucose 110 mg/dL (83-110); Potassium 3.5 mmol/L (3.5-5.1); Sodium 145 mmol/L (136-145)
[2023-09-12] MEDS: Furosemide 20 MG/2 ML VIAL SLOW IVP SCH ×2 (06:00→14:46)
[2023-09-12] MEDS: Tamsulosin HCl 0.4 MG CAP PO SCH (08:35)
[2023-09-12] MEDS: hydrALAZINE 25 MG TAB PO SCH (08:35)
[2023-09-12] MEDS: Gabapentin 100 MG CAP PO SCH (08:36)
[2023-09-12] MEDS: Calcitriol 0.25 MCG CAP PO SCH (08:36)
[2023-09-12] MEDS: Carvedilol 6.25 MG TAB PO SCH ×2 (08:36→20:02)
[2023-09-12] MEDS: Pantoprazole 40 MG VIAL IVP SCH (08:37)
[2023-09-12] MEDS: Amlodipine 10 MG TAB PO SCH (08:37)
[2023-09-12] MEDS: Piperacillin/Tazobactam 3.375 GM in Sodium Chloride 0.9% 100 ML IVPB SCH ×2 (08:37→20:02)
[2023-09-13] MEDS: Furosemide 20 MG/2 ML VIAL SLOW IVP SCH ×2 (05:43→13:19)
[2023-09-13] MEDS: Gabapentin 100 MG CAP PO SCH (08:23)
[2023-09-13] MEDS: Carvedilol 6.25 MG TAB PO SCH ×2 (08:23→20:02)
[2023-09-13] MEDS: hydrALAZINE 25 MG TAB PO SCH (08:23)
[2023-09-13] MEDS: Amlodipine 10 MG TAB PO SCH (08:24)
[2023-09-13] MEDS: Calcitriol 0.25 MCG CAP PO SCH (08:24)
[2023-09-13] MEDS: Pantoprazole 40 MG VIAL IVP SCH (08:24)
[2023-09-13] MEDS: Tamsulosin HCl 0.4 MG CAP PO SCH (08:24)
[2023-09-13] MEDS: Piperacillin/Tazobactam 3.375 GM in Sodium Chloride 0.9% 100 ML IVPB SCH (08:24)
[2023-09-13 14:43] LABS: Anion Gap 15 mmol/L (10-20); BUN (Urea Nitrogen) 71 mg/dL (8.4-25.7); Calc. Creatinine Clearance 13 mL/min (70-130); Calcium 8.5 mg/dL (7.8-10.44); Carbon Dioxide 18 mmol/L (23-31); Chloride 108 mmol/L (98-107); Estimated GFR 13; Glucose 154 mg/dL (83-110); Potassium 3.1 mmol/L (3.5-5.1); Sodium 138 mmol/L (136-145)
[2023-09-13 15:31] LABS: O2 Tension (PaO2), arterial 56.6 mmHg (> 60.0)
[2023-09-13] MEDS ORDERED: Meropenem 1 GM in Sodium Chloride 0.9% 100 ML IVPB SCH ×2 (19:00→21:00)
[2023-09-14 04:05] LABS: #Basophils 0.1 thou/uL (0.0-0.2); #Eosinphils 0.5 thou/uL (0.0-0.7); #Monocytes 1.7 thou/uL (0.11-0.59); #Neutrophils 18.2 thou/uL (1.40-6.50); %Basophils 0.3 % (0.0-1.0); %Eosinophils 2.2 % (0.0-10.0); %Lymphocytes 5.1 % (21.0-51.0); %Monocytes 7.7 % (0.0-10.0); %Neutrophils 83.6 % (42.0-75.0); Hematocrit 23.9 % (42.0-52.0); Hemoglobin 7.9 g/dL (14.0-18.0); Mean Corpuscular HGB CONC 33.1 g/dL (32.0-36.0); Mean Corpuscular Hemoglobin 31.5 pg (27.0-31.0); Mean Corpuscular Volume 95.2 fl (78.0-98.0); Mean Platelet Volume 11.1 fL (7.4-10.4); Platelet Count 283 10x3/uL (130-400); RBC Distribution Width 17.5 % (11.5-14.5); Red Blood Cell (RBC) Count 2.51 mill/uL (4.70-6.10); White Blood Cell (WBC) Count 21.7 10x3/uL (4.8-10.8)
[2023-09-14 04:30] LABS: Anion Gap 18 mmol/L (10-20); BUN (Urea Nitrogen) 75 mg/dL (8.4-25.7); Calc. Creatinine Clearance 13 mL/min (70-130); Calcium 8.1 mg/dL (7.8-10.44); Carbon Dioxide 15 mmol/L (23-31); Chloride 110 mmol/L (98-107); Estimated GFR 13; Glucose 108 mg/dL (83-110); Potassium 3.1 mmol/L (3.5-5.1); Sodium 140 mmol/L (136-145)
[2023-09-14] MEDS: Meropenem 500 MG in Sodium Chloride 0.9% 100 ML IVPB SCH ×2 (04:47→17:21)
[2023-09-14] MEDS: Furosemide 20 MG/2 ML VIAL SLOW IVP SCH ×2 (06:26→14:08)
[2023-09-14] MEDS: Tamsulosin HCl 0.4 MG CAP PO SCH (08:30)
[2023-09-14] MEDS: Gabapentin 100 MG CAP PO SCH (08:30)
[2023-09-14] MEDS: Carvedilol 6.25 MG TAB PO SCH ×2 (08:30→21:34)
[2023-09-14] MEDS: hydrALAZINE 25 MG TAB PO SCH (08:31)
[2023-09-14] MEDS: Pantoprazole 40 MG VIAL IVP SCH (08:31)
[2023-09-14] MEDS: Amlodipine 10 MG TAB PO SCH (08:31)
[2023-09-14] MEDS: Calcitriol 0.25 MCG CAP PO SCH (08:31)
[2023-09-14] MEDS: Acetaminophen 325 MG TAB PO PRN (11:21)
[2023-09-14] MEDS: Epoetin (ESRD) 10,000 UNITS/ML VIAL SC SCH (14:09)
[2023-09-14] MEDS ORDERED: Potassium Bicarbonate/Cit Ac 20 MEQ TAB PO SCH (17:15)
[2023-09-15] MEDS: Meropenem 500 MG in Sodium Chloride 0.9% 100 ML IVPB SCH ×2 (04:12→18:38)
[2023-09-15 04:33] LABS: #Basophils 0.1 thou/uL (0.0-0.2); #Eosinphils 0.3 thou/uL (0.0-0.7); #Monocytes 1.4 thou/uL (0.11-0.59); #Neutrophils 17.7 thou/uL (1.40-6.50); %Basophils 0.2 % (0.0-1.0); %Eosinophils 1.2 % (0.0-10.0); %Lymphocytes 5.5 % (21.0-51.0); %Monocytes 6.8 % (0.0-10.0); %Neutrophils 84.9 % (42.0-75.0); Hematocrit 24.3 % (42.0-52.0); Hemoglobin 8.1 g/dL (14.0-18.0); Mean Corpuscular HGB CONC 33.3 g/dL (32.0-36.0); Mean Corpuscular Hemoglobin 31.5 pg (27.0-31.0); Mean Corpuscular Volume 94.6 fl (78.0-98.0); Mean Platelet Volume 11.5 fL (7.4-10.4); Platelet Count 299 10x3/uL (130-400); RBC Distribution Width 17.9 % (11.5-14.5); Red Blood Cell (RBC) Count 2.57 mill/uL (4.70-6.10); White Blood Cell (WBC) Count 20.9 10x3/uL (4.8-10.8)
[2023-09-15 04:55] LABS: Anion Gap 15 mmol/L (10-20); BUN (Urea Nitrogen) 77 mg/dL (8.4-25.7); Calc. Creatinine Clearance 12 mL/min (70-130); Calcium 8.4 mg/dL (7.8-10.44); Carbon Dioxide 19 mmol/L (23-31); Chloride 110 mmol/L (98-107); Estimated GFR 12; Glucose 113 mg/dL (83-110); Potassium 3.4 mmol/L (3.5-5.1); Sodium 141 mmol/L (136-145)
[2023-09-15] MEDS: Furosemide 20 MG/2 ML VIAL SLOW IVP SCH (06:29)
[2023-09-15] MEDS: Gabapentin 100 MG CAP PO SCH (08:48)
[2023-09-15] MEDS: Amlodipine 10 MG TAB PO SCH (08:48)
[2023-09-15] MEDS: Calcitriol 0.25 MCG CAP PO SCH (08:49)
[2023-09-15] MEDS: Carvedilol 6.25 MG TAB PO SCH ×2 (08:49→21:32)
[2023-09-15] MEDS: hydrALAZINE 25 MG TAB PO SCH (08:49)
[2023-09-15] MEDS: Tamsulosin HCl 0.4 MG CAP PO SCH (08:49)
[2023-09-15] MEDS ORDERED: Sodium Bicarbonate 150 MEQ in Dextrose 5% in Water 1,000 ML IV SCH (11:00)
[2023-09-15 11:14] LABS: ALT (SGPT) 28 U/L (8-55); AST (SGOT) 25 U/L (5-34); Albumin 2.8 g/dL (3.4-4.8); Alkaline Phosphatase 67 U/L (40-110); Bilirubin, Direct 0.4 mg/dL (0.1-0.3); Bilirubin, Total 0.8 mg/dL (0.2-1.2); CRP (Inflammatory) 19.46 mg/dL (= or < 0.5); Protein, Total 5.4 g/dL (5.8-8.1)
[2023-09-15 12:09] VITALS: BP 155/74
[2023-09-15] MEDS: Acetaminophen 325 MG TAB PO PRN (13:41)
[2023-09-15 14:40] VITALS: BMI 26.5
[2023-09-16] MEDS: Meropenem 500 MG in Sodium Chloride 0.9% 100 ML IVPB SCH (04:11)
[2023-09-16 04:38] LABS: #Basophils 0.1 thou/uL (0.0-0.2); #Eosinphils 0.3 thou/uL (0.0-0.7); #Monocytes 1.4 thou/uL (0.11-0.59); #Neutrophils 17.7 thou/uL (1.40-6.50); %Basophils 0.3 % (0.0-1.0); %Eosinophils 1.2 % (0.0-10.0); %Lymphocytes 5.7 % (21.0-51.0); %Monocytes 6.8 % (0.0-10.0); %Neutrophils 84.5 % (42.0-75.0); Hematocrit 26.7 % (42.0-52.0); Mean Corpuscular HGB CONC 33.7 g/dL (32.0-36.0); Mean Corpuscular Hemoglobin 30.9 pg (27.0-31.0); Mean Corpuscular Volume 91.8 fl (78.0-98.0); Mean Platelet Volume 11.6 fL (7.4-10.4); Platelet Count 344 10x3/uL (130-400); RBC Distribution Width 17.4 % (11.5-14.5); Red Blood Cell (RBC) Count 2.91 mill/uL (4.70-6.10); White Blood Cell (WBC) Count 20.9 10x3/uL (4.8-10.8)
[2023-09-16 05:20] LABS: Anion Gap 18 mmol/L (10-20); BUN (Urea Nitrogen) 76 mg/dL (8.4-25.7); Calc. Creatinine Clearance 13 mL/min (70-130); Calcium 8.4 mg/dL (7.8-10.44); Carbon Dioxide 18 mmol/L (23-31); Chloride 109 mmol/L (98-107); Estimated GFR 13; Glucose 128 mg/dL (83-110); Potassium 3.3 mmol/L (3.5-5.1); Sodium 142 mmol/L (136-145)
[2023-09-16 07:47] VITALS: TEMP 98.2
[2023-09-16] MEDS: Calcitriol 0.25 MCG CAP PO SCH (08:45)
[2023-09-16] MEDS: Gabapentin 100 MG CAP PO SCH (08:46)
[2023-09-16] MEDS: hydrALAZINE 25 MG TAB PO SCH (08:47)
[2023-09-16] MEDS: Carvedilol 6.25 MG TAB PO SCH (08:47)
[2023-09-16] MEDS: Tamsulosin HCl 0.4 MG CAP PO SCH (08:48)
[2023-09-16] MEDS: Amlodipine 10 MG TAB PO SCH (08:48)
== END 2023-09-16 11:43 | disposition hospice, home (50) | DRG 557 ==
LOC: ERS 18:58 → 2NO 22:44 → IMCU/EMU 09-09 04:48
PROVIDERS: ADMIT Internal Medicine; ATTEND Internal Medicine
PROC: 3E03329 Introduction of Other Anti-infective into Peripheral Vein, Percutaneous Approach (ICD-10-PCS; 2023-09-07)
PROC: 4A133R1 Monitoring of Arterial Saturation, Peripheral, Percutaneous Approach (ICD-10-PCS; principal; 2023-09-09)
PROC: 5A0935A Assistance with Respiratory Ventilation, Less than 24 Consecutive Hours, High Flow/Velocity Cannula (ICD-10-PCS; 2023-09-09)
DX: M62.82 Rhabdomyolysis (principal); A41.9 Sepsis, unspecified organism; J69.0 Pneumonitis due to inhalation of food and vomit; G93.41 Metabolic encephalopathy; I21.A1 Myocardial infarction type 2; J96.01 Acute respiratory failure with hypoxia; I50.43 Acute on chronic combined systolic (congestive) and diastolic (congestive) heart failure; J18.9 Pneumonia, unspecified organism; N18.4 Chronic kidney disease, stage 4 (severe); N17.9 Acute kidney failure, unspecified; E87.20 Acidosis, unspecified; I42.9 Cardiomyopathy, unspecified; I13.0 Hypertensive heart and chronic kidney disease with heart failure and stage 1 through stage 4 chronic kidney disease, or unspecified chronic kidney disease; I48.92 Unspecified atrial flutter; E87.3 Alkalosis; Z51.5 Encounter for palliative care; Z66 Do not resuscitate; E78.5 Hyperlipidemia, unspecified; K74.60 Unspecified cirrhosis of liver; Z20.822 Contact with and (suspected) exposure to COVID-19; K21.9 Gastro-esophageal reflux disease without esophagitis; D63.1 Anemia in chronic kidney disease; M10.9 Gout, unspecified; I48.91 Unspecified atrial fibrillation; F10.90 Alcohol use, unspecified, uncomplicated; E87.6 Hypokalemia; E11.22 Type 2 diabetes mellitus with diabetic chronic kidney disease; R80.9 Proteinuria, unspecified; R77.8 Other specified abnormalities of plasma proteins; N40.1 Benign prostatic hyperplasia with lower urinary tract symptoms; R31.9 Hematuria, unspecified; R13.12 Dysphagia, oropharyngeal phase; W18.30XA Fall on same level, unspecified, initial encounter; Z88.2 Allergy status to sulfonamides; Z79.899 Other long term (current) drug therapy; Z90.49 Acquired absence of other specified parts of digestive tract; Z98.890 Other specified postprocedural states
CPT/HCPCS: 36415; 36416; 36600; 51701; 70450; 70551; 71045; 72125; 72170; 74230; 76770; 80048; 80053; 80076; 80306; 80307; 81001; 82140; 82306; 82550; 82805; 83605; 83690; 83735; 83880; 83970; 84443; 84484; 85025; 85027; 85610; 85730; 86140; 87040; 93005; 93010; 93306; 93970; 94640; C9113; J1644; J1940; J2185; J2543; J3480; J3490; J7050; J7070; J7620; Q4081